=== PATIENT | female | born 1940 | race Caucasian/White ===

== ENCOUNTER 2017-07-12 21:36 | Emergency (ER) | payer MEDICAID, OTHER ==
[~2017-07-12] VITALS: Ht 152.4 cm; Wt 80.9 kg
[~2017-07-12 21:36] MED LIST: ASPI81TA42 PO; HYDR25TA PO; LOSA50TA37 PO; VITAD1000 PO
[2017-07-12] MEDS ORDERED: CALC-1202 PO (21:44)
[2017-07-12] MEDS ORDERED: PRAV40TA4 PO (21:44)
[2017-07-12] MEDS ORDERED: AMLO-511 PO (21:44)
[2017-07-12] MEDS ORDERED: LOSA50TA37 PO (21:44)
[2017-07-12] MEDS ORDERED: ACET-48 PO (21:44)
[2017-07-12] MEDS ORDERED: ALEN70TA48 PO (21:44)
[2017-07-12 22:49] LABS: BASOPHILS % (AUTO) 0.6 % (0.0-2.0); EOSINOPHILS % (AUTO) 3.4 % (1.0-6.0); LYMPHOCYTES # (AUTO) 1.5 K/uL (1.0-4.8); LYMPHOCYTES % (AUTO) 14.4 % (22.0-44.0); MEAN CORPUSCULAR HEMOGLOBIN 29.5 pg (26.0-34.0); MEAN CORPUSCULAR HGB CONC 33.3 G/dL (31.0-37.0); MEAN CORPUSCULAR VOLUME 88 fL (80-100); MONOCYTES # (AUTO) 0.7 K/uL (0.1-1.0); NEUTROPHILS # (AUTO) 7.8 K/uL (1.8-7.7); NEUTROPHILS % (AUTO) 74.6 % (40.0-70.0); PLATELET COUNT (AUTO) 279 K/uL (150-450); RED BLOOD CELL COUNT(AUTO) 4.42 MIL/uL (4.00-5.20); RED CELL DISTRIBUTION WIDTH 13.8 % (11.5-14.5)
[2017-07-12 22:54] LABS: CALCIUM, TOTAL 8.8 mg/dL (8.8-10.5); CREATININE 1.1 mg/dL (0.60-1.30); POTASSIUM 3.3 mmol/L (3.5-5.1)
[2017-07-12 22:59] LABS: ALBUMIN 3.5 g/dL (3.4-5.0); BILIRUBIN,TOTAL 0.3 mg/dL (0.1-1.0); TOTAL PROTEIN, SERUM 6.8 g/dL (6.4-8.2)
[2017-07-12] MEDS ORDERED: IOVERSOL 350 MG/ML 100 ML VIAL ONE (23:12)
[2017-07-13 00:04] LABS: APPEARANCE,URINE CLEAR (CLEAR); BILIRUBIN,URINE NEGATIVE (NEGATIVE); GLUCOSE, URINE (UA) NEGATIVE (NEGATIVE); KETONES,URINE NEGATIVE (NEGATIVE); LEUKOCYTE ESTERASE ,URINE NEGATIVE (NEGATIVE); NITRATE,URINE NEGATIVE (NEGATIVE); OCCULT BLOOD,URINE NEGATIVE (NEGATIVE); PROTEIN,URINE NEGATIVE (NEGATIVE); UROBILINOGEN,URINE 0.2 mg/dL (<=1.0)
[2017-07-13] MEDS ORDERED: KETOROLAC TROMETHAMINE 30 MG/ML VIAL IVP ONE (00:15)
[2017-07-13 00:23] LABS: BACTERIA,URINE None Seen /HPF (None Seen); RBC,URINE None Seen /HPF (0-2); WBC,URINE None Seen /HPF (0-5)
[2017-07-13 00:43] VITALS: BP 115/74
== END 2017-07-13 00:51 | disposition home or self-care (01) ==
LOC: EMS 21:36
DX: S29.8XXA Other specified injuries of thorax, initial encounter (principal); R07.89 Other chest pain; E78.00 Pure hypercholesterolemia, unspecified; I10 Essential (primary) hypertension; M81.0 Age-related osteoporosis without current pathological fracture; Z79.82 Long term (current) use of aspirin; Z79.899 Other long term (current) drug therapy; W01.0XXA Fall on same level from slipping, tripping and stumbling without subsequent striking against object, initial encounter; Y93.89 Activity, other specified; Y92.89 Other specified places as the place of occurrence of the external cause; Y99.8 Other external cause status
CPT/HCPCS: 36415; 74177; 80053; 81001; 85025; 96374; 99285; J1885; Q9967

== ENCOUNTER 2025-01-21 12:35 | Inpatient (IN) | payer MEDICARE, OTHER ==
[~2025-01-21] VITALS: Ht 149.9 cm; Wt 87.0 kg
[~2025-01-21 12:35] MED LIST changes: +ACET-49 PO; +ALEN70TA65 PO; +AMLO-257 PO; +ASPI81TA40 PO; -ASPI81TA42 PO; +CALC-1219 PO; -HYDR25TA PO; +HYDR25TA2 PO; +LOSA-382 PO; -LOSA50TA37 PO; +PRAV-59 PO; -VITAD1000 PO
[2025-01-21] MEDS ORDERED: 0.9% SODIUM CHLORIDE 10 ML SYRINGE IVP PRN (12:45)
[2025-01-21] MEDS: SODIUM CHLORIDE 0.9% 1,000 ML IV ONE ×3 (12:50→15:44)
[2025-01-21] MEDS: CefTRIAXone 1 GM/DEXTROSE 50 ML IV ONE (12:54)
[2025-01-21 13:09] LABS: RED BLOOD CELL COUNT(AUTO) 3.63 MIL/uL (4.00-5.20); RED CELL DISTRIBUTION WIDTH 18.9 % (11.5-14.5); WHITE BLOOD COUNT (AUTO) 8.7 K/uL (4.5-11.0)
[2025-01-21 13:17] LABS: CALCIUM, TOTAL 8.5 mg/dL (8.8-10.5); CREATININE 5.40 mg/dL (0.60-1.30); GLOMERULAR FILTR. RATE CALC 8 mL/min (>60); GLUCOSE,RANDOM 140 mg/dL (70-110); SODIUM SERUM 138 mmol/L (136-145); UREA NITROGEN, BLOOD 63 mg/dL (7-18)
[2025-01-21 13:21] LABS: ASPARTATE AMINOTRANSFERASE 37 U/L (15-37); CREATINE KINASE, TOTAL ONLY 309 U/L (26-192); TOTAL PROTEIN, SERUM 5.4 g/dL (6.4-8.2)
[2025-01-21 13:25] LABS: TROPONIN I-HIGH SENSITIVITY 74 ng/L (<51)
[2025-01-21 13:36] LABS: COVID AG,FIA SOURCE NASAL SWAB
[2025-01-21 13:39] LABS: PLATELET COUNT (AUTO) 96 K/uL (150-450)
[2025-01-21 13:41] LABS: BAND NEUTROPHILS % (MANUAL) 7 % (0-5); LYMPHOCYTES % (MANUAL) 16 % (22-44); MONOCYTES % (MANUAL) 2 % (2-9); RBC MORPHOLOGY COMMENT ABNORMAL RBC MORPH; SEGMENTED NEUTROPHILS % 75 % (40-70)
[2025-01-21] MEDS: NOREPINEPHRINE 8 MG/0.9 % NACL 250 ML IV PRN (13:49)
[2025-01-21 14:03] LABS: INFLUENZA TYPE A NEGATIVE FOR TYPE A (NEGATIVE); INFLUENZA TYPE B NEGATIVE FOR TYPE B (NEGATIVE)
[2025-01-21 14:07] LABS: LACTIC ACID 6.5 mmol/L (0.4-2.0)
[2025-01-21 14:10] LABS: SARS-COV2 (COVID) ANTIGEN,FIA Positive (Negative)
[2025-01-21] MEDS ORDERED: ONDANSETRON HCL 4 MG/2 ML VIAL IVP PRN (15:00)
[2025-01-21] MEDS: HEPARIN SODIUM,PORCINE 5,000 UNITS/ML VIAL SQ SCH (15:44)
[2025-01-21] MEDS: ACETAMINOPHEN 325 MG TABLET PO PRN (15:45)
[2025-01-21] MEDS: DEXAMETHASONE SOD PHOS 4 MG/ML VIAL IVP SCH (17:30)
[2025-01-21] MEDS: ALBUMIN HUMAN 25%-25GM/100ML 100 ML IV SCH (17:31)
[2025-01-21] MEDS: REMDESIVIR 200 MG in SODIUM CHLORIDE 0.9% 250 ML IV ONE (18:30)
[2025-01-21 19:51] LABS: APPEARANCE,URINE TURBID (CLEAR); GLUCOSE, URINE (UA) NEGATIVE (NEGATIVE); LEUKOCYTE ESTERASE ,URINE LARGE (NEGATIVE); NITRATE,URINE NEGATIVE (NEGATIVE); OCCULT BLOOD,URINE SMALL (NEGATIVE); SPECIFIC GRAVITIY, URINE 1.021 (1.003-1.030)
[2025-01-21 20:00] LABS: SQUAMOUS EPITHELIAL CELL,UR Few /LPF (None Seen)
[2025-01-21 20:02] LABS: SULFOSALICYLIC ACID,URINE 3+ (Negative)
[2025-01-21] MEDS ORDERED: VASOPRESSIN 40 UNITS in DEXTROSE 5%-WATER 98 ML IV PRN (20:15)
[2025-01-21] MEDS: PHENYLEPHRINE 200 MG/D5%-WATER 250 ML IV PRN (20:40)
[2025-01-21] MEDS: DOCUSATE SODIUM 100 MG CAPSULE PO SCH (21:00)
[2025-01-21] MEDS: CHLORHEXIDINE GLUCONATE 2% TOWELETTE [2'S/6'S] TP SCH (22:00)
[2025-01-21 23:39] LABS: ABG BASE EXCESS -7.0 mmol/L (-2.0-3.0); ABG CARBOXYHEMOGLOBIN 0.7 % (0.5-1.5); ABG HCO3 19.3 mmol/L (21.0-28.0); ABG METHEMOGLOBIN 0.7 % (0.0-1.5); ABG OXYGEN CONTENT 14.7 mL/dL (15.0-23.0); ABG OXYGEN SATURATION 88.8 % (94.0-98.0); ABG OXYHEMOGLOBIN 87.6 % (94.0-98.0); ABG PCO2 34 mmHg (32.0-45.0); ABG PH 7.351 (7.350-7.450); ABG TOTAL HEMOGLOBIN 11.9 G/dL (12.0-16.0); FRACTIONATED INSPIRED OXYGEN 40.0 % (21-100.0); PO2, ARTERIAL BG 58.7 mmHg (83.0-108.0); SOURCE, BLOOD GAS ARTERIAL; TEMPERATURE, FAHRENHEIT, BG 98.6 FAHREN (96.0-98.6)
[2025-01-21 23:40] LABS: O2 DEVICE,BLOOD GAS VENTURI MASK (ROOM AIR); SITE, BLOOD GAS RT BRACHIAL
[2025-01-21 23:41] LABS: ABG A-A DIFF O2 186.9 mmHg (10-20.0)
[2025-01-21 23:45] VITALS: PULSE 77; RESP 30; O2SAT 94
[2025-01-22] VITALS (8 sets, daily range): BP systolic 124–136; BP diastolic 48–49; PULSE 57–87; RESP 16–32; TEMP 96.7; O2SAT 92–99
[2025-01-22] MEDS: PIPERACILLIN SODIUM/TAZOBACTAM 2.25 GM in DEXTROSE 5%-WATER 50 ML IV SCH (00:41)
[2025-01-22] MEDS: NOREPINEPHRINE 8 MG/0.9 % NACL 250 ML IV PRN (05:17)
[2025-01-22 05:46] LABS: ASPARTATE AMINOTRANSFERASE 56.0 U/L (15-37); CALCIUM, TOTAL 7.4 mg/dL (8.8-10.5); CREATININE 5.07 mg/dL (0.60-1.30); GLOMERULAR FILTR. RATE CALC 8.0 mL/min (>60); GLUCOSE,RANDOM 117.0 mg/dL (70-110); SODIUM SERUM 141.0 mmol/L (136-145); TOTAL PROTEIN, SERUM 5.7 g/dL (6.4-8.2); UREA NITROGEN, BLOOD 68.0 mg/dL (7-18)
[2025-01-22 06:01] LABS: PHOSPHORUS 5.2 mg/dL (2.5-4.9)
[2025-01-22 07:27] LABS: TROPONIN I-HIGH SENSITIVITY 2196 ng/L (<51)
[2025-01-22] MEDS: PANTOPRAZOLE SODIUM 40 MG/VIAL IVP SCH (08:32)
[2025-01-22] MEDS ORDERED: ASPIRIN 81 MG CHEWABLE TABLET ONE (08:42)
[2025-01-22] MEDS: ASPIRIN 81 MG CHEWABLE TABLET PO SCH (08:49)
[2025-01-22] MEDS ORDERED: HEPARIN SODIUM,PORCINE 5,000 UNITS/ML VIAL IVP PRN (10:30)
[2025-01-22 11:11] LABS: PLATELET COUNT (AUTO) 69 K/uL (150-450); RED BLOOD CELL COUNT(AUTO) 3.38 MIL/uL (4.00-5.20); RED CELL DISTRIBUTION WIDTH 19.7 % (11.5-14.5); WHITE BLOOD COUNT (AUTO) 16.1 K/uL (4.5-11.0)
[2025-01-22] MEDS: HEPARIN SODIUM,PORCINE 5,000 UNITS/ML VIAL IVP ONE (11:26)
[2025-01-22] MEDS: ATORVASTATIN CALCIUM 40 MG TABLET PO SCH (11:30)
[2025-01-22] MEDS: HEPARIN SODIUM 25000 UNITS/D5W 250 ML IV PRN (11:30)
[2025-01-22 11:51] LABS: BAND NEUTROPHILS % (MANUAL) 7 % (0-5); LYMPHOCYTES % (MANUAL) 7 % (22-44); MONOCYTES % (MANUAL) 17 % (2-9); RBC MORPHOLOGY COMMENT ABNORMAL R; SEGMENTED NEUTROPHILS % 69 % (40-70)
[2025-01-22 11:56] LABS: PATHOLOGY REVIEW, DIFF N
[2025-01-22] MEDS ORDERED: CefTRIAXone 1 GM/DEXTROSE 50 ML IV SCH (13:00)
[2025-01-22] MEDS ORDERED: ROCURONIUM BROMIDE 10 MG/ML 5 ML VIAL ONE (14:57)
[2025-01-22] MEDS ORDERED: ETOMIDATE 2 MG/ML 10 ML VIAL ONE (14:57)
[2025-01-22] MEDS ORDERED: SODIUM CHLORIDE 0.9% 500 ML IV ONE (15:03)
[2025-01-22 16:58] LABS: ABG BASE EXCESS -6.9 mmol/L (-2.0-3.0); ABG CARBOXYHEMOGLOBIN 0.3 % (0.5-1.5); ABG HCO3 19.3 mmol/L (21.0-28.0); ABG METHEMOGLOBIN 0.3 % (0.0-1.5); ABG OXYGEN CONTENT 16.7 mL/dL (15.0-23.0); ABG OXYGEN SATURATION 98.7 % (94.0-98.0); ABG OXYHEMOGLOBIN 98.1 % (94.0-98.0); ABG PCO2 40 mmHg (32.0-45.0); ABG PH 7.302 (7.350-7.450); ABG TOTAL HEMOGLOBIN 11.9 G/dL (12.0-16.0); FRACTIONATED INSPIRED OXYGEN 100.0 % (21-100.0); PO2, ARTERIAL BG 155.1 mmHg (83.0-108.0); SOURCE, BLOOD GAS ARTERIAL; TEMPERATURE, FAHRENHEIT, BG 99.3 FAHREN (96.0-98.6)
[2025-01-22 17:00] LABS: TROPONIN I-HIGH SENSITIVITY 5526 ng/L (<51)
[2025-01-22 17:01] LABS: ABG A-A DIFF O2 516.6 mmHg (10-20.0); O2 DEVICE,BLOOD GAS VENTILATOR (ROOM AIR); SITE, BLOOD GAS ARTERIAL LINE
[2025-01-22 17:02] LABS: INSPIRATORY TIME, BG 1 SEC; PATIENT RATE, BG 24.0 min.; PEEP,BG 10 cm H2O; SET RATE, BG 16.0 min.; SPONTANEOUS VT, BG 387 ml; VT, ABG 375 ml
[2025-01-22] MEDS: FentaNYL CIT 1000MCG/0.9% NACL 100 ML IV PRN (17:12)
[2025-01-22] MEDS: REMDESIVIR 100 MG in SODIUM CHLORIDE 0.9% 250 ML IV SCH (17:14)
[2025-01-22] MEDS: PROPOFOL 1000 MG/ISO-OSM 100 ML IV PRN (17:14)
[2025-01-22] MEDS: TOCILIZUMAB 700 MG in SODIUM CHLORIDE 0.9% 65 ML IV ONE (18:31)
[2025-01-22] MEDS: HEPARIN SODIUM,PORCINE 5,000 UNITS/ML VIAL IVP PRN (18:31)
[2025-01-23] VITALS (14 sets, daily range): BP systolic 114–155; BP diastolic 49–59; PULSE 6–125; RESP 14–22; TEMP 94.9–98.9; O2SAT 94–98
[2025-01-23 00:14] LABS: PLATELET COUNT (AUTO) 48 K/uL (150-450); RED BLOOD CELL COUNT(AUTO) 2.93 MIL/uL (4.00-5.20); RED CELL DISTRIBUTION WIDTH 20.2 % (11.5-14.5); WHITE BLOOD COUNT (AUTO) 15.1 K/uL (4.5-11.0)
[2025-01-23 00:23] LABS: CALCIUM, TOTAL 7.2 mg/dL (8.8-10.5); CREATININE 4.6 mg/dL (0.60-1.30); GLOMERULAR FILTR. RATE CALC 9.0 mL/min (>60); GLUCOSE,RANDOM 145.0 mg/dL (70-110); SODIUM SERUM 143.0 mmol/L (136-145); UREA NITROGEN, BLOOD 69.0 mg/dL (7-18)
[2025-01-23 00:28] LABS: ASPARTATE AMINOTRANSFERASE 48.0 U/L (15-37); PHOSPHORUS 4.7 mg/dL (2.5-4.9); TOTAL PROTEIN, SERUM 5.6 g/dL (6.4-8.2)
[2025-01-23 00:50] LABS: BAND NEUTROPHILS % (MANUAL) 8 % (0-5); LYMPHOCYTES % (MANUAL) 3 % (22-44); MONOCYTES % (MANUAL) 3 % (2-9); SEGMENTED NEUTROPHILS % 86 % (40-70)
[2025-01-23 00:51] LABS: RBC MORPHOLOGY COMMENT ABNORMAL RBC MORPH
[2025-01-23] MEDS: POTASSIUM CHLORIDE 15 MEQ in NXSTAGE RFP-402 K0/CA3 5,000 ML IRRIG PRN (05:15)
[2025-01-23 05:26] LABS: GLUCOMETER DEV NAME(LOC) ICU.S7; GLUCOSE,POINT OF CARE 124 MG/DL (70-110)
[2025-01-23 05:43] LABS: PLATELET COUNT (AUTO) 46 K/uL (150-450); RED BLOOD CELL COUNT(AUTO) 2.86 MIL/uL (4.00-5.20); RED CELL DISTRIBUTION WIDTH 19.8 % (11.5-14.5); WHITE BLOOD COUNT (AUTO) 15.4 K/uL (4.5-11.0)
[2025-01-23 06:17] LABS: ASPARTATE AMINOTRANSFERASE 42.0 U/L (15-37); CALCIUM, TOTAL 7.4 mg/dL (8.8-10.5); CREATININE 4.14 mg/dL (0.60-1.30); GLOMERULAR FILTR. RATE CALC 10.0 mL/min (>60); GLUCOSE,RANDOM 128.0 mg/dL (70-110); PHOSPHORUS 4.5 mg/dL (2.5-4.9); SODIUM SERUM 141.0 mmol/L (136-145); TOTAL PROTEIN, SERUM 5.9 g/dL (6.4-8.2); UREA NITROGEN, BLOOD 64.0 mg/dL (7-18)
[2025-01-23 06:43] LABS: TROPONIN I-HIGH SENSITIVITY 2943 ng/L (<51)
[2025-01-23 06:44] LABS: BAND NEUTROPHILS % (MANUAL) 11 % (0-5); LYMPHOCYTES % (MANUAL) 4 % (22-44); MONOCYTES % (MANUAL) 3 % (2-9); RBC MORPHOLOGY COMMENT ABNORMAL R; SEGMENTED NEUTROPHILS % 82 % (40-70)
[2025-01-23 07:25] LABS: APPEARANCE,URINE HAZY (CLEAR); GLUCOSE, URINE (UA) NEGATIVE (NEGATIVE); LEUKOCYTE ESTERASE ,URINE MODERATE (NEGATIVE); NITRATE,URINE NEGATIVE (NEGATIVE); OCCULT BLOOD,URINE MODERATE (NEGATIVE); SPECIFIC GRAVITIY, URINE 1.022 (1.003-1.030)
[2025-01-23 08:35] LABS: SULFOSALICYLIC ACID,URINE 3+ (Negative)
[2025-01-23 08:36] LABS: SQUAMOUS EPITHELIAL CELL,UR Few /LPF (None Seen)
[2025-01-23] MEDS: PIPERACILLIN/TAZO 3.375 GM/D5W 50 ML IV SCH (08:42)
[2025-01-23 09:48] LABS: ABG BASE EXCESS -4.9 mmol/L (-2.0-3.0); ABG CARBOXYHEMOGLOBIN 0.3 % (0.5-1.5); ABG HCO3 20.7 mmol/L (21.0-28.0); ABG METHEMOGLOBIN 0.3 % (0.0-1.5); ABG OXYGEN CONTENT 13.9 mL/dL (15.0-23.0); ABG OXYGEN SATURATION 97.9 % (94.0-98.0); ABG OXYHEMOGLOBIN 97.3 % (94.0-98.0); ABG PCO2 41 mmHg (32.0-45.0); ABG PH 7.333 (7.350-7.450); ABG TOTAL HEMOGLOBIN 10.0 G/dL (12.0-16.0); FRACTIONATED INSPIRED OXYGEN 60.0 % (21-100.0); PO2, ARTERIAL BG 120.5 mmHg (83.0-108.0); SOURCE, BLOOD GAS ARTERIAL; TEMPERATURE, FAHRENHEIT, BG 98.6 FAHREN (96.0-98.6)
[2025-01-23 09:49] LABS: ABG A-A DIFF O2 262.8 mmHg (10-20.0); SITE, BLOOD GAS ARTERIAL LINE
[2025-01-23 09:50] LABS: O2 DEVICE,BLOOD GAS VENTILATOR (ROOM AIR); PEEP,BG 10 cm H2O; SET RATE, BG 16.0 min.; VT, ABG 375 ml
[2025-01-23 11:11] LABS: CREATININE,URINE RANDOM 152.0 mg/dL (30.0-125.0); UREA NITROGEN,URINE RANDOM 250 mg/dL (350-1000)
[2025-01-23] MEDS: AMIODARONE HCL 150 MG in DEXTROSE 5%-WATER 97 ML IV ONE (12:18)
[2025-01-23] MEDS: AMIODARONE HCL 360 MG in DEXTROSE 5%-WATER 242.8 ML IV ONE (12:19)
[2025-01-23] MEDS: *CLINICAL-LEVOFLOXACIN IVPB DOSING CLINICAL ONE (12:53)
[2025-01-23 14:34] LABS: CALCIUM, TOTAL 7.5 mg/dL (8.8-10.5); CREATININE 3.59 mg/dL (0.60-1.30); GLOMERULAR FILTR. RATE CALC 12.0 mL/min (>60); GLUCOSE,RANDOM 139.0 mg/dL (70-110); SODIUM SERUM 139.0 mmol/L (136-145); UREA NITROGEN, BLOOD 57.0 mg/dL (7-18)
[2025-01-23 14:39] LABS: PHOSPHORUS 4.1 mg/dL (2.5-4.9)
[2025-01-23] MEDS ORDERED: SODIUM CHLORIDE 0.9% 250 ML IV ONE (15:37)
[2025-01-23] MEDS: LEVOFLOXACIN 750 MG/D5% WATER 150 ML IV SCH (16:59)
[2025-01-23] MEDS: AMIODARONE HCL 540 MG in DEXTROSE 5%-WATER 250 ML IV ONE (17:50)
[2025-01-23 21:15] LABS: CALCIUM, TOTAL 7.7 mg/dL (8.8-10.5); CREATININE 3.27 mg/dL (0.60-1.30); GLOMERULAR FILTR. RATE CALC 13.0 mL/min (>60); GLUCOSE,RANDOM 145.0 mg/dL (70-110); SODIUM SERUM 138.0 mmol/L (136-145); UREA NITROGEN, BLOOD 50.0 mg/dL (7-18)
[2025-01-23 21:18] LABS: PHOSPHORUS 3.7 mg/dL (2.5-4.9)
[2025-01-24] VITALS (19 sets, daily range): BP systolic 115–162; BP diastolic 50–63; PULSE 44–95; RESP 18–25; TEMP 96.1–98.9; O2SAT 9–99
[2025-01-24 02:17] LABS: CALCIUM, TOTAL 7.7 mg/dL (8.8-10.5); CREATININE 3.11 mg/dL (0.60-1.30); GLOMERULAR FILTR. RATE CALC 14.0 mL/min (>60); GLUCOSE,RANDOM 136.0 mg/dL (70-110); SODIUM SERUM 136.0 mmol/L (136-145); UREA NITROGEN, BLOOD 50.0 mg/dL (7-18)
[2025-01-24 02:21] LABS: PHOSPHORUS 3.5 mg/dL (2.5-4.9)
[2025-01-24 08:04] LABS: PLATELET COUNT (AUTO) 42 K/uL (150-450); RED BLOOD CELL COUNT(AUTO) 2.45 MIL/uL (4.00-5.20); RED CELL DISTRIBUTION WIDTH 19.5 % (11.5-14.5); WHITE BLOOD COUNT (AUTO) 13.0 K/uL (4.5-11.0)
[2025-01-24 08:14] LABS: CALCIUM, TOTAL 7.6 mg/dL (8.8-10.5); CREATININE 2.83 mg/dL (0.60-1.30); GLOMERULAR FILTR. RATE CALC 16.0 mL/min (>60); GLUCOSE,RANDOM 126.0 mg/dL (70-110); SODIUM SERUM 135.0 mmol/L (136-145); UREA NITROGEN, BLOOD 46.0 mg/dL (7-18)
[2025-01-24 08:18] LABS: PHOSPHORUS 3.5 mg/dL (2.5-4.9)
[2025-01-24] MEDS: *CLINICAL-MEROPENEM DOSING CLINICAL ONE (08:20)
[2025-01-24 10:08] LABS: ABG BASE EXCESS -2.6 mmol/L (-2.0-3.0); ABG CARBOXYHEMOGLOBIN 0.3 % (0.5-1.5); ABG HCO3 22.5 mmol/L (21.0-28.0); ABG METHEMOGLOBIN 0.3 % (0.0-1.5); ABG OXYGEN CONTENT 11.0 mL/dL (15.0-23.0); ABG OXYGEN SATURATION 97.7 % (94.0-98.0); ABG OXYHEMOGLOBIN 97.1 % (94.0-98.0); ABG PCO2 41 mmHg (32.0-45.0); ABG PH 7.365 (7.350-7.450); ABG TOTAL HEMOGLOBIN 7.9 G/dL (12.0-16.0); FRACTIONATED INSPIRED OXYGEN 50.0 % (21-100.0); PO2, ARTERIAL BG 112.1 mmHg (83.0-108.0); SOURCE, BLOOD GAS ARTERIAL; TEMPERATURE, FAHRENHEIT, BG 98.6 FAHREN (96.0-98.6)
[2025-01-24 10:11] LABS: SITE, BLOOD GAS ARTERIAL LINE
[2025-01-24 10:12] LABS: ABG A-A DIFF O2 198.5 mmHg (10-20.0); O2 DEVICE,BLOOD GAS VENTILATOR (ROOM AIR); PEEP,BG 5 cm H2O; SET RATE, BG 20.0 min.; VT, ABG 375 ml
[2025-01-24] MEDS: MEROPENEM 1 GM in SODIUM CHLORIDE 0.9% 50 ML IV SCH (11:34)
[2025-01-24] MEDS: AMIODARONE HCL 200 MG TABLET PO SCH (11:34)
[2025-01-24] MEDS: AMIODARONE HCL 750 MG in DEXTROSE 5%-WATER 485 ML IV SCH (11:36)
[2025-01-24 14:48] LABS: CALCIUM, TOTAL 7.9 mg/dL (8.8-10.5); CREATININE 2.7 mg/dL (0.60-1.30); GLOMERULAR FILTR. RATE CALC 17.0 mL/min (>60); GLUCOSE,RANDOM 115.0 mg/dL (70-110); SODIUM SERUM 135.0 mmol/L (136-145); UREA NITROGEN, BLOOD 42.0 mg/dL (7-18)
[2025-01-24 14:52] LABS: PHOSPHORUS 3.1 mg/dL (2.5-4.9)
[2025-01-24 20:54] LABS: CALCIUM, TOTAL 8.0 mg/dL (8.8-10.5); CREATININE 2.41 mg/dL (0.60-1.30); GLOMERULAR FILTR. RATE CALC 19.0 mL/min (>60); GLUCOSE,RANDOM 109.0 mg/dL (70-110); SODIUM SERUM 137.0 mmol/L (136-145); UREA NITROGEN, BLOOD 39.0 mg/dL (7-18)
[2025-01-24 21:03] LABS: PHOSPHORUS 3.3 mg/dL (2.5-4.9)
[2025-01-24] MEDS ORDERED: SODIUM CHLORIDE 0.9% 250 ML IV ONE (21:33)
[2025-01-25] VITALS (17 sets, daily range): BP systolic 107–163; BP diastolic 52–69; PULSE 41–119; RESP 18–26; TEMP 96–98.5; O2SAT 93–100
[2025-01-25 02:18] LABS: CALCIUM, TOTAL 8.3 mg/dL (8.8-10.5); CREATININE 2.13 mg/dL (0.60-1.30); GLOMERULAR FILTR. RATE CALC 22.0 mL/min (>60); GLUCOSE,RANDOM 133.0 mg/dL (70-110); SODIUM SERUM 135.0 mmol/L (136-145); UREA NITROGEN, BLOOD 35.0 mg/dL (7-18)
[2025-01-25 02:23] LABS: PHOSPHORUS 3.2 mg/dL (2.5-4.9)
[2025-01-25] MEDS ORDERED: SODIUM CHLORIDE 0.9% 250 ML IV ONE (04:48)
[2025-01-25 05:12] LABS: PLATELET COUNT (AUTO) 43 K/uL (150-450); RED BLOOD CELL COUNT(AUTO) 2.72 MIL/uL (4.00-5.20); RED CELL DISTRIBUTION WIDTH 18.4 % (11.5-14.5); WHITE BLOOD COUNT (AUTO) 9.2 K/uL (4.5-11.0)
[2025-01-25 05:27] LABS: PHOSPHORUS 3.0 mg/dL (2.5-4.9)
[2025-01-25 05:30] LABS: ASPARTATE AMINOTRANSFERASE 23.0 U/L (15-37); CALCIUM, TOTAL 8.5 mg/dL (8.8-10.5); CREATININE 1.93 mg/dL (0.60-1.30); GLOMERULAR FILTR. RATE CALC 25.0 mL/min (>60); GLUCOSE,RANDOM 119.0 mg/dL (70-110); SODIUM SERUM 137.0 mmol/L (136-145); TOTAL PROTEIN, SERUM 5.7 g/dL (6.4-8.2); UREA NITROGEN, BLOOD 36.0 mg/dL (7-18)
[2025-01-25 08:44] LABS: PLATELET COUNT (AUTO) 46 K/uL (150-450); RED BLOOD CELL COUNT(AUTO) 2.92 MIL/uL (4.00-5.20); RED CELL DISTRIBUTION WIDTH 18.4 % (11.5-14.5); WHITE BLOOD COUNT (AUTO) 10.5 K/uL (4.5-11.0)
[2025-01-25] MEDS: DOCUSATE SODIUM 100 MG/10 ML LIQUID UDCUP NG SCH (09:36)
[2025-01-25] MEDS: AMIODARONE HCL 360 MG in DEXTROSE 5%-WATER 242.8 ML IV ONE (10:45)
[2025-01-25 13:01] LABS: CALCIUM, TOTAL 9.1 mg/dL (8.8-10.5); CREATININE 1.88 mg/dL (0.60-1.30); GLOMERULAR FILTR. RATE CALC 25.0 mL/min (>60); GLUCOSE,RANDOM 149.0 mg/dL (70-110); SODIUM SERUM 135.0 mmol/L (136-145); UREA NITROGEN, BLOOD 36.0 mg/dL (7-18)
[2025-01-25 13:04] LABS: PHOSPHORUS 3.5 mg/dL (2.5-4.9)
[2025-01-25] MEDS: POTASSIUM CHLORIDE 20 MEQ in NXSTAGE RFP-402 K0/CA3 5,000 ML IRRIG PRN (13:14)
[2025-01-25] MEDS: AMIODARONE HCL 540 MG in DEXTROSE 5%-WATER 250 ML IV ONE (16:32)
[2025-01-25 20:20] LABS: CALCIUM, TOTAL 9.2 mg/dL (8.8-10.5); CREATININE 1.79 mg/dL (0.60-1.30); GLOMERULAR FILTR. RATE CALC 27.0 mL/min (>60); GLUCOSE,RANDOM 137.0 mg/dL (70-110); SODIUM SERUM 135.0 mmol/L (136-145); UREA NITROGEN, BLOOD 36.0 mg/dL (7-18)
[2025-01-25 20:23] LABS: PHOSPHORUS 2.9 mg/dL (2.5-4.9)
[2025-01-26] VITALS (16 sets, daily range): BP systolic 94–174; BP diastolic 45–74; PULSE 46–81; RESP 8–27; TEMP 97.6–99.4; O2SAT 94–100
[2025-01-26 03:23] LABS: CALCIUM, TOTAL 9.4 mg/dL (8.8-10.5); CREATININE 1.49 mg/dL (0.60-1.30); GLOMERULAR FILTR. RATE CALC 33.0 mL/min (>60); GLUCOSE,RANDOM 117.0 mg/dL (70-110); SODIUM SERUM 137.0 mmol/L (136-145); UREA NITROGEN, BLOOD 36.0 mg/dL (7-18)
[2025-01-26 03:28] LABS: PHOSPHORUS 2.6 mg/dL (2.5-4.9)
[2025-01-26 08:20] LABS: CALCIUM, TOTAL 9.2 mg/dL (8.8-10.5); CREATININE 1.48 mg/dL (0.60-1.30); GLOMERULAR FILTR. RATE CALC 34.0 mL/min (>60); GLUCOSE,RANDOM 100.0 mg/dL (70-110); SODIUM SERUM 140.0 mmol/L (136-145); UREA NITROGEN, BLOOD 35.0 mg/dL (7-18)
[2025-01-26 08:23] LABS: PHOSPHORUS 2.2 mg/dL (2.5-4.9)
[2025-01-26] MEDS: AMIODARONE HCL 750 MG in DEXTROSE 5%-WATER 485 ML IV SCH (10:30)
[2025-01-26] MEDS: ETHYL ALCOHOL 62% ANTISEPTIC NASAL SANITIZER 0.6 ML AMPUL NASAL SCH (11:56)
[2025-01-26 14:14] LABS: ABG BASE EXCESS 2.0 mmol/L (-2.0-3.0); ABG CARBOXYHEMOGLOBIN 0.2 % (0.5-1.5); ABG HCO3 25.7 mmol/L (21.0-28.0); ABG METHEMOGLOBIN 0.3 % (0.0-1.5); ABG OXYGEN CONTENT 13.7 mL/dL (15.0-23.0); ABG OXYGEN SATURATION 95.2 % (94.0-98.0); ABG OXYHEMOGLOBIN 94.7 % (94.0-98.0); ABG PCO2 51 mmHg (32.0-45.0); ABG PH 7.351 (7.350-7.450); ABG TOTAL HEMOGLOBIN 10.2 G/dL (12.0-16.0); FRACTIONATED INSPIRED OXYGEN 40.0 % (21-100.0); PO2, ARTERIAL BG 82.8 mmHg (83.0-108.0); SOURCE, BLOOD GAS ARTERIAL; TEMPERATURE, FAHRENHEIT, BG 98.3 FAHREN (96.0-98.6)
[2025-01-26 14:15] LABS: ABG A-A DIFF O2 144.0 mmHg (10-20.0); O2 DEVICE,BLOOD GAS VENTILATOR (ROOM AIR); PATIENT RATE, BG 7.0 min.; PEEP,BG 5 cm H2O; SITE, BLOOD GAS ARTERIAL LINE; VENT MODE, BG Press. Support Vent. (ROOM AIR)
[2025-01-26 14:16] LABS: PRESSURE SUPPORT, BG 5 cm H2O; SPONTANEOUS VT, BG 849 ml
[2025-01-26 15:05] LABS: CALCIUM, TOTAL 9.4 mg/dL (8.8-10.5); CREATININE 1.47 mg/dL (0.60-1.30); GLOMERULAR FILTR. RATE CALC 34.0 mL/min (>60); GLUCOSE,RANDOM 142.0 mg/dL (70-110); SODIUM SERUM 138.0 mmol/L (136-145); UREA NITROGEN, BLOOD 36.0 mg/dL (7-18)
[2025-01-26 15:09] LABS: PHOSPHORUS 2.8 mg/dL (2.5-4.9)
[2025-01-26] MEDS: HEPARIN SODIUM,PORCINE 1,000 UNITS/ML VIAL IVCATH PRN (16:12)
[2025-01-26] MEDS: METOPROLOL TARTRATE 25 MG TABLET PO SCH (18:03)
[2025-01-26] MEDS ORDERED: SODIUM CHLORIDE 0.9% 500 ML IV ONE ×2 (19:17→19:56)
[2025-01-26] MEDS ORDERED: SODIUM CHLORIDE 0.9% 250 ML IV ONE (19:17)
[2025-01-26 19:33] LABS: PLATELET COUNT (AUTO) 59 K/uL (150-450); RED BLOOD CELL COUNT(AUTO) 2.71 MIL/uL (4.00-5.20); RED CELL DISTRIBUTION WIDTH 19.0 % (11.5-14.5); WHITE BLOOD COUNT (AUTO) 9.1 K/uL (4.5-11.0)
[2025-01-26] MEDS: LACTULOSE 20 GM/30 ML SOLUTION UDCUP PO SCH (20:15)
[2025-01-26 20:26] LABS: BAND NEUTROPHILS % (MANUAL) 6 % (0-5); LYMPHOCYTES % (MANUAL) 9 % (22-44); MONOCYTES % (MANUAL) 7 % (2-9); SEGMENTED NEUTROPHILS % 78 % (40-70)
[2025-01-27] VITALS (18 sets, daily range): BP systolic 135–180; BP diastolic 55–77; PULSE 60–98; RESP 12–27; TEMP 98.9–99.5; O2SAT 94–99
[2025-01-27 05:21] LABS: CALCIUM, TOTAL 10.0 mg/dL (8.8-10.5); CREATININE 2.36 mg/dL (0.60-1.30); GLOMERULAR FILTR. RATE CALC 20.0 mL/min (>60); GLUCOSE,RANDOM 107.0 mg/dL (70-110); SODIUM SERUM 139.0 mmol/L (136-145); UREA NITROGEN, BLOOD 57.0 mg/dL (7-18)
[2025-01-27 05:23] LABS: PLATELET COUNT (AUTO) 86 K/uL (150-450); RED BLOOD CELL COUNT(AUTO) 2.88 MIL/uL (4.00-5.20); RED CELL DISTRIBUTION WIDTH 17.9 % (11.5-14.5); WHITE BLOOD COUNT (AUTO) 14.0 K/uL (4.5-11.0)
[2025-01-27 05:25] LABS: PHOSPHORUS 3.2 mg/dL (2.5-4.9)
[2025-01-27 05:26] LABS: BAND NEUTROPHILS % (MANUAL) 0 % (0-5)
[2025-01-27 05:49] LABS: LYMPHOCYTES % (MANUAL) 15 % (22-44); MONOCYTES % (MANUAL) 6 % (2-9); SEGMENTED NEUTROPHILS % 79 % (40-70)
[2025-01-27] MEDS ORDERED: SODIUM CHLORIDE 0.9% 2,000 ML ONE (10:40)
[2025-01-27] MEDS ORDERED: HEPARIN SODIUM,PORCINE 1,000 UNITS/ML VIAL ONE (12:00)
[2025-01-27 15:25] LABS: ABG BASE EXCESS -1.2 mmol/L (-2.0-3.0); ABG CARBOXYHEMOGLOBIN 0.2 % (0.5-1.5); ABG HCO3 23.6 mmol/L (21.0-28.0); ABG METHEMOGLOBIN 0.3 % (0.0-1.5); ABG OXYGEN CONTENT 12.1 mL/dL (15.0-23.0); ABG OXYGEN SATURATION 95.4 % (94.0-98.0); ABG OXYHEMOGLOBIN 94.9 % (94.0-98.0); ABG PCO2 39 mmHg (32.0-45.0); ABG PH 7.405 (7.350-7.450); ABG TOTAL HEMOGLOBIN 9.0 G/dL (12.0-16.0); FRACTIONATED INSPIRED OXYGEN 40.0 % (21-100.0); PO2, ARTERIAL BG 86.4 mmHg (83.0-108.0); SOURCE, BLOOD GAS ARTERIAL; TEMPERATURE, FAHRENHEIT, BG 99.2 FAHREN (96.0-98.6)
[2025-01-27 15:26] LABS: SITE, BLOOD GAS ARTERIAL LINE
[2025-01-27 15:27] LABS: ABG A-A DIFF O2 154.3 mmHg (10-20.0); O2 DEVICE,BLOOD GAS VENTILATOR (ROOM AIR); PATIENT RATE, BG 20.0 min.; PEEP,BG 5 cm H2O; PRESSURE SUPPORT, BG 8 cm H2O; VENT MODE, BG Press. Support Vent. (ROOM AIR)
[2025-01-27 15:28] LABS: SPONTANEOUS VT, BG 545 ml
[2025-01-27] MEDS: AMINO ACIDS/PROTEIN HYDROLYS 30 ML LIQUID TUBE NG SCH (16:00)
[2025-01-27] MEDS: MEROPENEM 500 MG in SODIUM CHLORIDE 0.9% 50 ML IV SCH (18:09)
[2025-01-27 18:30] LABS: APPEARANCE,URINE HAZY (CLEAR); GLUCOSE, URINE (UA) NEGATIVE (NEGATIVE); LEUKOCYTE ESTERASE ,URINE SMALL (NEGATIVE); NITRATE,URINE NEGATIVE (NEGATIVE); OCCULT BLOOD,URINE NEGATIVE (NEGATIVE); SPECIFIC GRAVITIY, URINE 1.019 (1.003-1.030)
[2025-01-27 18:51] LABS: SQUAMOUS EPITHELIAL CELL,UR Moderate /LPF (None Seen)
[2025-01-27] MEDS: HEPARIN SODIUM,PORCINE 1,000 UNITS/ML VIAL IVCATH ONE ×2 (20:30)
[2025-01-28] VITALS (16 sets, daily range): BP systolic 102–154; BP diastolic 52–76; PULSE 69–98; RESP 16–22; TEMP 98.2–100.8; O2SAT 95–99
[2025-01-28 05:44] LABS: PLATELET COUNT (AUTO) 120 K/uL (150-450); RED BLOOD CELL COUNT(AUTO) 2.81 MIL/uL (4.00-5.20); RED CELL DISTRIBUTION WIDTH 17.9 % (11.5-14.5); WHITE BLOOD COUNT (AUTO) 14.3 K/uL (4.5-11.0)
[2025-01-28 05:58] LABS: ASPARTATE AMINOTRANSFERASE 23.0 U/L (15-37); CALCIUM, TOTAL 9.2 mg/dL (8.8-10.5); CREATININE 2.03 mg/dL (0.60-1.30); GLOMERULAR FILTR. RATE CALC 23.0 mL/min (>60); GLUCOSE,RANDOM 87.0 mg/dL (70-110); SODIUM SERUM 139.0 mmol/L (136-145); TOTAL PROTEIN, SERUM 6.3 g/dL (6.4-8.2); UREA NITROGEN, BLOOD 43.0 mg/dL (7-18)
[2025-01-28 06:07] LABS: PHOSPHORUS 2.9 mg/dL (2.5-4.9)
[2025-01-28] MEDS ORDERED: HEPARIN SODIUM,PORCINE 1,000 UNITS/ML VIAL IVP ONE (09:19)
[2025-01-28] MEDS: ACETAMINOPHEN 1000 MG/ISO-OSM 100 ML IV PRN (11:23)
[2025-01-28] MEDS ORDERED: SODIUM CHLORIDE 0.9% 250 ML IV ONE (13:02)
[2025-01-28] MEDS: HEPARIN SODIUM,PORCINE 1,000 UNITS/ML VIAL IVCATH ONE ×2 (14:00)
[2025-01-28] MEDS ORDERED: SODIUM CHLORIDE 0.9% 500 ML IV ONE (17:17)
[2025-01-28] MEDS: MORPHINE SULFATE 4 MG/ML VIAL IVP PRN (21:54)
[2025-01-29] VITALS (7 sets, daily range): BP systolic 103–133; BP diastolic 65–88; PULSE 68–87; RESP 18–20; TEMP 98.2–99; O2SAT 92–99
[2025-01-29 06:19] LABS: PLATELET COUNT (AUTO) 165 K/uL (150-450); RED BLOOD CELL COUNT(AUTO) 2.90 MIL/uL (4.00-5.20); RED CELL DISTRIBUTION WIDTH 17.2 % (11.5-14.5); WHITE BLOOD COUNT (AUTO) 14.0 K/uL (4.5-11.0)
[2025-01-29 06:41] LABS: ASPARTATE AMINOTRANSFERASE 17.0 U/L (15-37); CALCIUM, TOTAL 9.3 mg/dL (8.8-10.5); CREATININE 2.63 mg/dL (0.60-1.30); GLOMERULAR FILTR. RATE CALC 17.0 mL/min (>60); GLUCOSE,RANDOM 98.0 mg/dL (70-110); SODIUM SERUM 139.0 mmol/L (136-145); TOTAL PROTEIN, SERUM 6.2 g/dL (6.4-8.2); UREA NITROGEN, BLOOD 56.0 mg/dL (7-18)
[2025-01-29] MEDS ORDERED: IOHEXOL 300 MG/ML 50 ML VIAL ONE (07:46)
[2025-01-29] MEDS ORDERED: LIDOCAINE/PF 1% 30 ML VIAL ONE (07:46)
[2025-01-29] MEDS ORDERED: SODIUM BICARBONATE 50 MEQ/50 ML VIAL ONE (07:46)
[2025-01-29] MEDS: IOHEXOL 300 MG/ML 50 ML VIAL IARTER ONE (09:36)
[2025-01-29] MEDS: LIDOCAINE 1% 30 ML/SOD BICARB 8.4% 4 ML SQ ONE (09:36)
[2025-01-29] MEDS: HEPARIN SODIUM,PORCINE 1,000 UNITS/ML 10 ML VIAL IVP ONE (09:38)
[2025-01-29] MEDS: APIXABAN 2.5 MG TABLET PO SCH (22:16)
[2025-01-30] VITALS (15 sets, daily range): BP systolic 101–151; BP diastolic 56–86; PULSE 68–91; RESP 16–19; TEMP 97.9–99.5; O2SAT 9–99
[2025-01-30 06:04] LABS: PLATELET COUNT (AUTO) 201 K/uL (150-450); RED BLOOD CELL COUNT(AUTO) 2.79 MIL/uL (4.00-5.20); RED CELL DISTRIBUTION WIDTH 16.9 % (11.5-14.5); WHITE BLOOD COUNT (AUTO) 13.6 K/uL (4.5-11.0)
[2025-01-30 06:29] LABS: CALCIUM, TOTAL 9.1 mg/dL (8.8-10.5); CREATININE 3.98 mg/dL (0.60-1.30); GLOMERULAR FILTR. RATE CALC 11.0 mL/min (>60); GLUCOSE,RANDOM 113.0 mg/dL (70-110); SODIUM SERUM 138.0 mmol/L (136-145)
[2025-01-30 06:33] LABS: UREA NITROGEN, BLOOD 102.0 mg/dL (7-18)
[2025-01-30 06:55] LABS: RBC MORPHOLOGY COMMENT ABNORMAL RBC MORPH
[2025-01-30] MEDS: ACETAMINOPHEN 325 MG TABLET PO PRN (08:42)
[2025-01-30] MEDS ORDERED: HEPARIN SODIUM,PORCINE 1,000 UNITS/ML VIAL IVP ONE (08:43)
[2025-01-30] MEDS ORDERED: ALBUMIN HUMAN 25%-12.5GM/50ML IV BOTTLE IV ONE (08:43)
[2025-01-31 03:56] VITALS: BP 107/75; PULSE 56; RESP 18; TEMP 98.6; O2SAT 95
[2025-01-31 07:10] LABS: PLATELET COUNT (AUTO) 260 K/uL (150-450); RED BLOOD CELL COUNT(AUTO) 2.97 MIL/uL (4.00-5.20); RED CELL DISTRIBUTION WIDTH 17.2 % (11.5-14.5); WHITE BLOOD COUNT (AUTO) 14.4 K/uL (4.5-11.0)
[2025-01-31 07:37] LABS: CALCIUM, TOTAL 9.0 mg/dL (8.8-10.5); CREATININE 3.09 mg/dL (0.60-1.30); GLOMERULAR FILTR. RATE CALC 14.0 mL/min (>60); GLUCOSE,RANDOM 100.0 mg/dL (70-110); SODIUM SERUM 138.0 mmol/L (136-145); UREA NITROGEN, BLOOD 75.0 mg/dL (7-18)
[2025-01-31 08:24] VITALS: BP 102/76; PULSE 88; RESP 17; TEMP 99; O2SAT 99
[2025-01-31 11:52] VITALS: BP 95/66; PULSE 87; RESP 19; TEMP 99.3; O2SAT 95
[2025-01-31 16:13] VITALS: BP 113/82; PULSE 89; RESP 18; TEMP 98.8; O2SAT 96
[2025-01-31 20:00] VITALS: BP 106/65; PULSE 78; RESP 18; TEMP 97.5; O2SAT 96
[2025-02-01 01:02] VITALS: BP 121/93; PULSE 52; RESP 18; TEMP 99; O2SAT 97
[2025-02-01 04:21] VITALS: BP 116/72; PULSE 52; RESP 18; TEMP 97.7; O2SAT 94
[2025-02-01 07:27] LABS: PLATELET COUNT (AUTO) 291 K/uL (150-450); RED BLOOD CELL COUNT(AUTO) 3.06 MIL/uL (4.00-5.20); RED CELL DISTRIBUTION WIDTH 16.5 % (11.5-14.5); WHITE BLOOD COUNT (AUTO) 14.7 K/uL (4.5-11.0)
[2025-02-01 07:39] LABS: CALCIUM, TOTAL 8.5 mg/dL (8.8-10.5); CREATININE 4.2 mg/dL (0.60-1.30); GLOMERULAR FILTR. RATE CALC 10.0 mL/min (>60); GLUCOSE,RANDOM 93.0 mg/dL (70-110); SODIUM SERUM 133.0 mmol/L (136-145)
[2025-02-01 07:43] LABS: UREA NITROGEN, BLOOD 113.0 mg/dL (7-18)
[2025-02-01 08:47] VITALS: BP 106/70; PULSE 60; RESP 18; TEMP 97.7; O2SAT 97
[2025-02-01 16:58] VITALS: BP 92/66; PULSE 97; RESP 18; TEMP 97.7; O2SAT 97
[2025-02-01] MEDS ORDERED: SODIUM CHLORIDE 0.9% 500 ML IV ONE (17:07)
[2025-02-01 20:29] VITALS: BP 103/70; PULSE 104; RESP 20; TEMP 97.7; O2SAT 94
[2025-02-02] VITALS (13 sets, daily range): BP systolic 69–122; BP diastolic 43–98; PULSE 52–110; RESP 18–19; TEMP 97.5–98.6; O2SAT 90–98
[2025-02-02 06:51] LABS: PLATELET COUNT (AUTO) 314 K/uL (150-450); RED BLOOD CELL COUNT(AUTO) 3.10 MIL/uL (4.00-5.20); RED CELL DISTRIBUTION WIDTH 16.5 % (11.5-14.5); WHITE BLOOD COUNT (AUTO) 13.3 K/uL (4.5-11.0)
[2025-02-02 07:18] LABS: ASPARTATE AMINOTRANSFERASE 38.0 U/L (15-37); CALCIUM, TOTAL 8.5 mg/dL (8.8-10.5); CREATININE 4.64 mg/dL (0.60-1.30); GLOMERULAR FILTR. RATE CALC 9.0 mL/min (>60); GLUCOSE,RANDOM 98.0 mg/dL (70-110); SODIUM SERUM 135.0 mmol/L (136-145); TOTAL PROTEIN, SERUM 5.6 g/dL (6.4-8.2)
[2025-02-02 07:27] LABS: UREA NITROGEN, BLOOD 147.0 mg/dL (7-18)
[2025-02-02] MEDS: EPOETIN ALFA 10,000 UNITS/ML VIAL SQ SCH (09:04)
[2025-02-02] MEDS ORDERED: HEPARIN SODIUM,PORCINE 1,000 UNITS/ML VIAL ONE (12:00)
[2025-02-02] MEDS ORDERED: ALBUMIN HUMAN 25%-12.5GM/50ML IV BOTTLE ONE (12:00)
[2025-02-02 13:42] LABS: COVID AG,FIA SOURCE NASAL SWAB
[2025-02-02 14:20] LABS: SARS-COV2 (COVID) ANTIGEN,FIA Negative (Negative)
[2025-02-02] MEDS ORDERED: SODIUM CHLORIDE 0.9% 1,000 ML ONE (17:33)
[2025-02-02] MEDS ORDERED: ALBUMIN HUMAN 25%-12.5GM/50ML 50 ML IV PRN (17:45)
[2025-02-02] MEDS: ALBUMIN HUMAN 25%-25GM/100ML 100 ML IV ONE (18:54)
[2025-02-02] MEDS: HEPARIN SODIUM,PORCINE 1,000 UNITS/ML VIAL IVCATH ONE ×2 (22:04)
[2025-02-02] MEDS: ALBUMIN HUMAN 25%-12.5GM/50ML IV BOTTLE IV ONE (22:04)
[2025-02-02] MEDS: MIDODRINE HCL 2.5 MG TABLET PO SCH (22:10)
[2025-02-03] VITALS (8 sets, daily range): BP systolic 82–147; BP diastolic 40–119; PULSE 68–95; RESP 18–20; TEMP 98.1–98.8; O2SAT 96–99
[2025-02-03 07:05] LABS: PLATELET COUNT (AUTO) 313 K/uL (150-450); RED BLOOD CELL COUNT(AUTO) 3.21 MIL/uL (4.00-5.20); RED CELL DISTRIBUTION WIDTH 16.1 % (11.5-14.5); WHITE BLOOD COUNT (AUTO) 12.0 K/uL (4.5-11.0)
[2025-02-03 07:15] LABS: CALCIUM, TOTAL 8.0 mg/dL (8.8-10.5); CREATININE 2.19 mg/dL (0.60-1.30); GLOMERULAR FILTR. RATE CALC 21.0 mL/min (>60); GLUCOSE,RANDOM 97.0 mg/dL (70-110); SODIUM SERUM 136.0 mmol/L (136-145); UREA NITROGEN, BLOOD 55.0 mg/dL (7-18)
[2025-02-03] MEDS: SODIUM CHLORIDE 0.9% 250 ML IV STA (10:20)
[2025-02-03 10:25] LABS: GLUCOMETER DEV NAME(LOC) 6N.2C; GLUCOSE,POINT OF CARE 113 MG/DL (70-110)
[2025-02-03 10:41] LABS: BAND NEUTROPHILS % (MANUAL) 0 % (0-5)
[2025-02-03] MEDS: METOPROLOL TARTRATE 5 MG/5 ML VIAL IVP ONE (10:45)
[2025-02-03] MEDS ORDERED: AMIODARONE HCL 150 MG in DEXTROSE 5%-WATER 97 ML IV ONE (10:45)
[2025-02-03 10:46] LABS: PLATELET COUNT (AUTO) 319 K/uL (150-450); RED BLOOD CELL COUNT(AUTO) 3.18 MIL/uL (4.00-5.20); RED CELL DISTRIBUTION WIDTH 16.4 % (11.5-14.5); WHITE BLOOD COUNT (AUTO) 12.8 K/uL (4.5-11.0)
[2025-02-03 10:48] LABS: CALCIUM, TOTAL 8.3 mg/dL (8.8-10.5); CREATININE 2.38 mg/dL (0.60-1.30); GLOMERULAR FILTR. RATE CALC 19 mL/min (>60); GLUCOSE,RANDOM 111 mg/dL (70-110); SODIUM SERUM 136 mmol/L (136-145); UREA NITROGEN, BLOOD 59 mg/dL (7-18)
[2025-02-03 11:00] LABS: TROPONIN I-HIGH SENSITIVITY 120 ng/L (<51)
[2025-02-03] MEDS ORDERED: AMIODARONE HCL 360 MG in DEXTROSE 5%-WATER 242.8 ML IV ONE (11:00)
[2025-02-03 11:28] LABS: LYMPHOCYTES % (MANUAL) 7 % (22-44); SEGMENTED NEUTROPHILS % 93 % (40-70)
[2025-02-03] MEDS ORDERED: PHENYLEPHRINE 200 MG/D5%-WATER 250 ML IV PRN (14:00)
[2025-02-03] MEDS ORDERED: SODIUM CHLORIDE 0.9% 1,000 ML ONE (14:06)
[2025-02-03] MEDS: ALBUMIN HUMAN 25%-12.5GM/50ML 50 ML IV ONE (14:17)
[2025-02-03] MEDS: SODIUM CHLORIDE 0.9% 250 ML IV ONE (14:17)
[2025-02-03] MEDS: AMIODARONE HCL 360 MG in DEXTROSE 5%-WATER 242.8 ML IV ONE (14:17)
[2025-02-03] MEDS: DIGOXIN 250 MCG/ML 2 ML AMP IVP ONE ×2 (14:45→14:50)
[2025-02-03] MEDS: AMIODARONE HCL 150 MG in DEXTROSE 5%-WATER 97 ML IV ONE (14:50)
[2025-02-03] MEDS: POTASSIUM CHLORIDE 20 MEQ ER TABLET PO ONE (17:29)
[2025-02-03] MEDS: AMIODARONE HCL 540 MG in DEXTROSE 5%-WATER 250 ML IV ONE (20:31)
[2025-02-04] VITALS (14 sets, daily range): BP systolic 93–138; BP diastolic 54–80; PULSE 59–106; RESP 18; TEMP 97.7–98.6; O2SAT 97–98
[2025-02-04 06:31] LABS: PLATELET COUNT (AUTO) 302 K/uL (150-450); RED BLOOD CELL COUNT(AUTO) 2.94 MIL/uL (4.00-5.20); RED CELL DISTRIBUTION WIDTH 16.7 % (11.5-14.5); WHITE BLOOD COUNT (AUTO) 9.9 K/uL (4.5-11.0)
[2025-02-04 07:00] LABS: ASPARTATE AMINOTRANSFERASE 27.0 U/L (15-37); CALCIUM, TOTAL 8.4 mg/dL (8.8-10.5); CREATININE 2.68 mg/dL (0.60-1.30); GLOMERULAR FILTR. RATE CALC 17.0 mL/min (>60); GLUCOSE,RANDOM 93.0 mg/dL (70-110); SODIUM SERUM 134.0 mmol/L (136-145); TOTAL PROTEIN, SERUM 5.4 g/dL (6.4-8.2); UREA NITROGEN, BLOOD 71.0 mg/dL (7-18)
[2025-02-04] MEDS ORDERED: ALBUMIN HUMAN 25%-12.5GM/50ML IV BOTTLE ONE (09:36)
[2025-02-04] MEDS ORDERED: HEPARIN SODIUM,PORCINE 1,000 UNITS/ML VIAL ONE (09:36)
[2025-02-04] MEDS: HEPARIN SODIUM,PORCINE 1,000 UNITS/ML VIAL IVCATH ONE ×2 (15:37→15:38)
[2025-02-04] MEDS: ALBUMIN HUMAN 25%-12.5GM/50ML IV BOTTLE IV PRN (15:38)
[2025-02-04] MEDS: AMIODARONE HCL 750 MG in DEXTROSE 5%-WATER 485 ML IV SCH (15:53)
[2025-02-04] MEDS: AMIODARONE HCL 200 MG TABLET PO SCH (20:43)
[2025-02-04 20:47] LABS: APPEARANCE,URINE HAZY (CLEAR); GLUCOSE, URINE (UA) NEGATIVE (NEGATIVE); LEUKOCYTE ESTERASE ,URINE MODERATE (NEGATIVE); NITRATE,URINE NEGATIVE (NEGATIVE); OCCULT BLOOD,URINE SMALL (NEGATIVE); SPECIFIC GRAVITIY, URINE 1.017 (1.003-1.030)
[2025-02-04 20:59] LABS: SQUAMOUS EPITHELIAL CELL,UR Moderate /LPF (None Seen)
[2025-02-05] VITALS: BP 109/65; PULSE 60; RESP 18; TEMP 98.4; O2SAT 98
[2025-02-05 04:00] VITALS: BP 115/61; PULSE 56; RESP 18; TEMP 98.6; O2SAT 97
[2025-02-05 07:27] VITALS: BP 118/72; PULSE 64; RESP 18; TEMP 98.6; O2SAT 98
[2025-02-05 11:33] VITALS: BP 128/44; PULSE 68; RESP 18; TEMP 97.5; O2SAT 98
[2025-02-05 16:54] VITALS: BP 121/66; PULSE 65; RESP 18; TEMP 98; O2SAT 97
== END 2025-02-05 18:40 | DRG 870 ==
LOC: EMS 12:43 → EDH 14:55 → ICU 01-22 20:15 → 5N 01-28 14:32 → 4E 02-01 03:35 → UNDODISIN 02-03 11:44 → 5N 02-03 12:39
PROVIDERS: ADMIT Internal Medicine; ATTEND Internal Medicine
PROC: 5A0935A Assistance with Respiratory Ventilation, Less than 24 Consecutive Hours, High Flow/Velocity Cannula (ICD-10-PCS; 2025-01-21)
PROC: 5A1955Z Respiratory Ventilation, Greater than 96 Consecutive Hours (ICD-10-PCS; principal; 2025-01-22)
PROC: 0BH17EZ Insertion of Endotracheal Airway into Trachea, Via Natural or Artificial Opening (ICD-10-PCS; 2025-01-22)
PROC: 06HY33Z Insertion of Infusion Device into Lower Vein, Percutaneous Approach (ICD-10-PCS; 2025-01-22)
PROC: 30233N1 Transfusion of Nonautologous Red Blood Cells into Peripheral Vein, Percutaneous Approach (ICD-10-PCS; 2025-01-24)
PROC: 5A1D70Z Performance of Urinary Filtration, Intermittent, Less than 6 Hours Per Day (ICD-10-PCS; 2025-01-27)
PROC: 5A1D70Z Performance of Urinary Filtration, Intermittent, Less than 6 Hours Per Day (ICD-10-PCS; 2025-01-28)
PROC: 0JH63XZ Insertion of Tunneled Vascular Access Device into Chest Subcutaneous Tissue and Fascia, Percutaneous Approach (ICD-10-PCS; 2025-01-29)
PROC: 05HY33Z Insertion of Infusion Device into Upper Vein, Percutaneous Approach (ICD-10-PCS; 2025-01-29)
PROC: B51B1ZA Fluoroscopy of Right Lower Extremity Veins using Low Osmolar Contrast, Guidance (ICD-10-PCS; 2025-01-29)
PROC: 5A1D70Z Performance of Urinary Filtration, Intermittent, Less than 6 Hours Per Day (ICD-10-PCS; 2025-01-30)
PROC: 5A1D70Z Performance of Urinary Filtration, Intermittent, Less than 6 Hours Per Day (ICD-10-PCS; 2025-02-02)
PROC: 5A1D70Z Performance of Urinary Filtration, Intermittent, Less than 6 Hours Per Day (ICD-10-PCS; 2025-02-04)
DX: A41.50 Gram-negative sepsis, unspecified (principal); G92.8 Other toxic encephalopathy; I21.A1 Myocardial infarction type 2; J96.01 Acute respiratory failure with hypoxia; R65.21 Severe sepsis with septic shock; U07.1 COVID-19; J12.82 Pneumonia due to coronavirus disease 2019; N17.0 Acute kidney failure with tubular necrosis; N18.6 End stage renal disease; R57.0 Cardiogenic shock; N39.0 Urinary tract infection, site not specified; I12.0 Hypertensive chronic kidney disease with stage 5 chronic kidney disease or end stage renal disease; Z16.12 Extended spectrum beta lactamase (ESBL) resistance; D69.6 Thrombocytopenia, unspecified; E66.9 Obesity, unspecified; I48.0 Paroxysmal atrial fibrillation; B96.20 Unspecified Escherichia coli [E. coli] as the cause of diseases classified elsewhere; N20.0 Calculus of kidney; E87.6 Hypokalemia; D63.1 Anemia in chronic kidney disease; Z68.38 Body mass index [BMI] 38.0-38.9, adult; E78.00 Pure hypercholesterolemia, unspecified; I16.0 Hypertensive urgency; Z79.82 Long term (current) use of aspirin; Z79.899 Other long term (current) drug therapy; Z87.11 Personal history of peptic ulcer disease; Z99.2 Dependence on renal dialysis
CPT/HCPCS: 36245; 36561; 36600; 51702; 70450; 71045; 71250; 72141; 72146; 72148; 72192; 73200; 74150; 76000; 80048; 80053; 80076; 81001; 81002; 82550; 82570; 82805; 82962; 83605; 83735; 83880; 84100; 84145; 84300; 84484; 84540; 85007; 85014; 85018; 85025; 85027; 85379; 85610; 85730; 86850; 86900; 86901; 86923; 87040; 87077; 87081; 87086; 87186; 87205; 87340; 87804; 90935; 90947; 92526; 92610; 93005; 93306; 93931; 93971; 94002; 94003; 96365; 97163; 97167; 97530; 97535; 99291; G0378; J0131; J0282; J0360; J0696; J0885; J1100; J1160; J1644; J1956; J2185; J2270; J2370; J2470; J2543; J2704; J3010; J3480; J3490; J7030; J7040; J7050; J7060; P9016; P9046; P9047; Q9967; 36415-L1; 36415-TC

== ENCOUNTER 2025-02-09 13:47 | Emergency (ER) | payer MEDICARE, OTHER ==
[~2025-02-09] VITALS: Ht 162.6 cm; Wt 79.5 kg
[2025-02-09 14:30] VITALS: TEMP 98
[2025-02-09 20:16] LABS: PLATELET COUNT (AUTO) 182 K/uL (150-450); RED BLOOD CELL COUNT(AUTO) 2.75 MIL/uL (4.00-5.20); RED CELL DISTRIBUTION WIDTH 16.9 % (11.5-14.5); WHITE BLOOD COUNT (AUTO) 6.5 K/uL (4.5-11.0)
[2025-02-09 20:21] LABS: CALCIUM, TOTAL 8.5 mg/dL (8.8-10.5); CREATININE 1.28 mg/dL (0.60-1.30); GLOMERULAR FILTR. RATE CALC 40.0 mL/min (>60); GLUCOSE,RANDOM 107.0 mg/dL (70-110); SODIUM SERUM 134.0 mmol/L (136-145); UREA NITROGEN, BLOOD 20.0 mg/dL (7-18)
[2025-02-09 21:13] VITALS: BP 128/74; PULSE 59; RESP 16; O2SAT 97
[2025-02-09] MEDS ORDERED: TRAM50TA5 PO (21:30)
[2025-02-09] MEDS ORDERED: LIDO-57 TP (21:31)
== END 2025-02-09 23:22 ==
LOC: EMS 13:47
DX: S09.90XA Unspecified injury of head, initial encounter (principal); M80.08XA Age-related osteoporosis with current pathological fracture, vertebra(e), initial encounter for fracture; E78.00 Pure hypercholesterolemia, unspecified; I12.0 Hypertensive chronic kidney disease with stage 5 chronic kidney disease or end stage renal disease; N18.6 End stage renal disease; Z79.82 Long term (current) use of aspirin; Z99.2 Dependence on renal dialysis; Z79.899 Other long term (current) drug therapy; W06.XXXA Fall from bed, initial encounter; Y93.89 Activity, other specified; Y92.89 Other specified places as the place of occurrence of the external cause; Y99.8 Other external cause status
CPT/HCPCS: 70450; 72070; 72100; 72125; 80048; 85025; 99284

== ENCOUNTER 2025-02-22 09:01 | Inpatient (IN) | payer MEDICARE, OTHER ==
[~2025-02-22] VITALS: Ht 157.5 cm; Wt 85.2 kg
[~2025-02-22 09:01] MED LIST changes: +LIDO-57 TP; +TRAM50TA5 PO
[2025-02-22 09:33] LABS: PLATELET COUNT (AUTO) 282 K/uL (150-450); RED BLOOD CELL COUNT(AUTO) 2.62 MIL/uL (4.00-5.20); RED CELL DISTRIBUTION WIDTH 16.2 % (11.5-14.5); WHITE BLOOD COUNT (AUTO) 14.3 K/uL (4.5-11.0)
[2025-02-22 09:41] LABS: CALCIUM, TOTAL 8.7 mg/dL (8.8-10.5); CREATININE 1.6 mg/dL (0.60-1.30); GLOMERULAR FILTR. RATE CALC 31.0 mL/min (>60); GLUCOSE,RANDOM 135.0 mg/dL (70-110); SODIUM SERUM 136.0 mmol/L (136-145); UREA NITROGEN, BLOOD 27.0 mg/dL (7-18)
[2025-02-22 09:46] LABS: ASPARTATE AMINOTRANSFERASE 19.0 U/L (15-37); TOTAL PROTEIN, SERUM 5.5 g/dL (6.4-8.2)
[2025-02-22 09:47] LABS: TROPONIN I-HIGH SENSITIVITY 24 ng/L (<51)
[2025-02-22 11:24] LABS: APPEARANCE,URINE TURBID (CLEAR); GLUCOSE, URINE (UA) NEGATIVE (NEGATIVE); LEUKOCYTE ESTERASE ,URINE LARGE (NEGATIVE); NITRATE,URINE NEGATIVE (NEGATIVE); OCCULT BLOOD,URINE SMALL (NEGATIVE); SPECIFIC GRAVITIY, URINE 1.004 (1.003-1.030)
[2025-02-22 11:44] LABS: SQUAMOUS EPITHELIAL CELL,UR Few /LPF (None Seen); YEAST,URINE Moderate /HPF (None Seen)
[2025-02-22] MEDS: ACETAMINOPHEN 1000 MG/ISO-OSM 100 ML IV ONE (13:28)
[2025-02-22] MEDS: CefTRIAXone 1 GM/DEXTROSE 50 ML IV ONE (13:28)
[2025-02-22] MEDS ORDERED: ONDANSETRON HCL 4 MG/2 ML VIAL IVP PRN (14:00)
[2025-02-22] MEDS ORDERED: MAGNESIUM HYDROXIDE SUSPENSION 30 ML UDCUP PO PRN (14:00)
[2025-02-22] MEDS ORDERED: BISACODYL 10 MG RECTAL RECTAL SUPPOSITORY PR PRN (14:00)
[2025-02-22] MEDS: ASPIRIN 81 MG DR TABLET PO SCH (14:21)
[2025-02-22 14:45] VITALS: BP 128/95; PULSE 78; RESP 19; TEMP 98.4; O2SAT 100
[2025-02-22] MEDS ORDERED: HEPARIN SODIUM,PORCINE 5,000 UNITS/ML VIAL SQ SCH (16:00)
[2025-02-22 19:31] VITALS: BP 154/74; PULSE 72; RESP 18; TEMP 97.9; O2SAT 97
[2025-02-22] MEDS: POTASSIUM CHLORIDE 10% 40 MEQ/30 ML LIQUID UDCUP PO ONE (20:34)
[2025-02-22] MEDS: DOCUSATE SODIUM 100 MG CAPSULE PO SCH (20:35)
[2025-02-22] MEDS: LORazepam 2 MG/ML VIAL IVP ONE (20:35)
[2025-02-22] MEDS: ATORVASTATIN CALCIUM 40 MG TABLET PO SCH (20:35)
[2025-02-22] MEDS: POTASSIUM CHLORIDE 20 MEQ ER TABLET PO ONE (23:29)
[2025-02-23 00:14] VITALS: BP 147/70; PULSE 87; RESP 20; TEMP 99.1; O2SAT 96
[2025-02-23] MEDS: ACETAMINOPHEN 325 MG TABLET PO PRN (02:40)
[2025-02-23 04:07] VITALS: BP 142/79; PULSE 81; RESP 19; TEMP 98.6; O2SAT 98
[2025-02-23 07:16] LABS: PLATELET COUNT (AUTO) 290 K/uL (150-450); RED BLOOD CELL COUNT(AUTO) 2.61 MIL/uL (4.00-5.20); RED CELL DISTRIBUTION WIDTH 16.4 % (11.5-14.5); WHITE BLOOD COUNT (AUTO) 18.0 K/uL (4.5-11.0)
[2025-02-23 07:36] LABS: CALCIUM, TOTAL 8.6 mg/dL (8.8-10.5); CREATININE 1.55 mg/dL (0.60-1.30); GLOMERULAR FILTR. RATE CALC 32.0 mL/min (>60); GLUCOSE,RANDOM 88.0 mg/dL (70-110); SODIUM SERUM 138.0 mmol/L (136-145); UREA NITROGEN, BLOOD 28.0 mg/dL (7-18)
[2025-02-23 07:40] VITALS: BP 128/68; PULSE 73; RESP 20; TEMP 98.2; O2SAT 96
[2025-02-23] MEDS: PANTOPRAZOLE SODIUM 40 MG DR TABLET PO SCH (07:59)
[2025-02-23] MEDS: METOPROLOL TARTRATE 25 MG TABLET PO SCH (08:00)
[2025-02-23 12:05] VITALS: BP 119/55; PULSE 81; RESP 20; TEMP 99.3; O2SAT 99
[2025-02-23] MEDS: FUROSEMIDE 20 MG TABLET PO SCH (13:09)
[2025-02-23] MEDS: CefTRIAXone 1 GM/DEXTROSE 50 ML IV SCH (13:09)
[2025-02-23] MEDS: FOLIC ACID/VIT B COMPLEX AND C TABLET PO SCH (13:09)
[2025-02-23 15:58] VITALS: BP 117/92; PULSE 95; RESP 19; TEMP 98.4; O2SAT 96
[2025-02-23 20:00] VITALS: BP 129/81; PULSE 94; RESP 20; TEMP 98.4; O2SAT 94
[2025-02-24 00:51] VITALS: BP 159/82; PULSE 81; RESP 20; TEMP 98.8; O2SAT 96
[2025-02-24 06:33] VITALS: BP 152/77; PULSE 78; RESP 20; TEMP 98.2; O2SAT 96
[2025-02-24 06:45] LABS: CALCIUM, TOTAL 8.7 mg/dL (8.8-10.5); CREATININE 1.3 mg/dL (0.60-1.30); GLOMERULAR FILTR. RATE CALC 39.0 mL/min (>60); GLUCOSE,RANDOM 95.0 mg/dL (70-110); SODIUM SERUM 142.0 mmol/L (136-145); UREA NITROGEN, BLOOD 24.0 mg/dL (7-18)
[2025-02-24 06:58] LABS: % IRON SATURATION 28.9 % (22-44); IRON, SERUM 42.0 mcg/dL (50-175)
[2025-02-24] MEDS ORDERED: LIDOCAINE/PF 1% 30 ML VIAL ONE (08:09)
[2025-02-24] MEDS ORDERED: SODIUM BICARBONATE 50 MEQ/50 ML VIAL ONE (08:09)
[2025-02-24 08:20] VITALS: BP 149/86; PULSE 79; RESP 19; TEMP 98; O2SAT 98
[2025-02-24 11:05] VITALS: BP 145/75; PULSE 82; RESP 18; TEMP 98.4; O2SAT 95
[2025-02-24 11:59] LABS: PLATELET COUNT (AUTO) 319 K/uL (150-450); RED BLOOD CELL COUNT(AUTO) 2.64 MIL/uL (4.00-5.20); RED CELL DISTRIBUTION WIDTH 16.4 % (11.5-14.5); WHITE BLOOD COUNT (AUTO) 15.4 K/uL (4.5-11.0)
[2025-02-24 15:42] VITALS: BP 144/77; PULSE 76; RESP 16; TEMP 98.1; O2SAT 92
[2025-02-24] MEDS: POTASSIUM CHL 10 MEQ/WATER 50 ML IV SCH (17:59)
[2025-02-24 20:25] VITALS: BP 151/73; PULSE 72; RESP 18; TEMP 97.9; O2SAT 97
[2025-02-24] MEDS ORDERED: SODIUM CHLORIDE 0.9% 1,000 ML ONE (21:56)
[2025-02-24] MEDS: ZOLPIDEM TARTRATE 5 MG TABLET PO PRN (22:36)
[2025-02-25] VITALS (8 sets, daily range): BP systolic 132–159; BP diastolic 65–90; PULSE 72–85; RESP 19–20; TEMP 97.5–99.7; O2SAT 95–98
[2025-02-25 06:47] LABS: CREATININE 1.21 mg/dL (0.60-1.30); GLOMERULAR FILTR. RATE CALC 42.0 mL/min (>60); GLUCOSE,RANDOM 100.0 mg/dL (70-110); SODIUM SERUM 143.0 mmol/L (136-145); UREA NITROGEN, BLOOD 27.0 mg/dL (7-18)
[2025-02-25 06:53] LABS: CALCIUM, TOTAL 8.3 mg/dL (8.8-10.5)
[2025-02-25 07:09] LABS: PLATELET COUNT (AUTO) 359 K/uL (150-450); RED BLOOD CELL COUNT(AUTO) 2.62 MIL/uL (4.00-5.20); RED CELL DISTRIBUTION WIDTH 16.7 % (11.5-14.5); WHITE BLOOD COUNT (AUTO) 17.8 K/uL (4.5-11.0)
[2025-02-25] MEDS ORDERED: 0.9% SODIUM CHLORIDE 10 ML SYRINGE IVP PRN (10:15)
[2025-02-25] MEDS: *CLINICAL-MEROPENEM DOSING CLINICAL ONE (10:19)
[2025-02-25] MEDS: SODIUM CHLORIDE 0.9% 250 ML IV ONE (11:23)
[2025-02-25 11:33] LABS: PLATELET COUNT (AUTO) 339 K/uL (150-450); RED BLOOD CELL COUNT(AUTO) 2.53 MIL/uL (4.00-5.20); RED CELL DISTRIBUTION WIDTH 16.6 % (11.5-14.5); WHITE BLOOD COUNT (AUTO) 15.9 K/uL (4.5-11.0)
[2025-02-25 11:38] LABS: CALCIUM, TOTAL 8.3 mg/dL (8.8-10.5); CREATININE 1.15 mg/dL (0.60-1.30); GLOMERULAR FILTR. RATE CALC 45 mL/min (>60); GLUCOSE,RANDOM 97 mg/dL (70-110); SODIUM SERUM 142 mmol/L (136-145); UREA NITROGEN, BLOOD 26 mg/dL (7-18)
[2025-02-25 11:43] LABS: ASPARTATE AMINOTRANSFERASE 19 U/L (15-37); LACTATE DEHYDROGENASE 298 U/L (81-234); TOTAL PROTEIN, SERUM 5.6 g/dL (6.4-8.2)
[2025-02-25 11:55] LABS: LACTIC ACID 1.1 mmol/L (0.4-2.0)
[2025-02-25] MEDS: RINGERS SOLUTION,LACTATED 500 ML IV ONE (12:23)
[2025-02-25] MEDS: MEROPENEM 1 GM in SODIUM CHLORIDE 0.9% 50 ML IV SCH ×2 (12:26→23:29)
[2025-02-25] MEDS ORDERED: SODIUM CHLORIDE 0.9% 100 ML ONE (14:16)
[2025-02-25] MEDS ORDERED: 0.9% SODIUM CHLORIDE 10 ML SYRINGE IVP ONE (14:16)
[2025-02-25] MEDS ORDERED: IOHEXOL 350 MG/ML 100 ML VIAL ONE (14:16)
[2025-02-25] MEDS ORDERED: LATA2.5D7 OU (16:51)
[2025-02-25] MEDS: POTASSIUM CHLORIDE 10% 40 MEQ/30 ML LIQUID UDCUP PO ONE (16:54)
[2025-02-25] MEDS ORDERED: NITROGLYCERIN 0.4 MG SUBLINGUAL TABLET #25 SL PRN ×2 (18:45→19:15)
[2025-02-25] MEDS ORDERED: ASPIRIN 81 MG CHEWABLE TABLET PO ONE (18:45)
[2025-02-25 18:55] LABS: GLUCOMETER DEV NAME(LOC) 5N.1D; GLUCOSE,POINT OF CARE 102 MG/DL (70-110)
[2025-02-25 19:11] LABS: TROPONIN I-HIGH SENSITIVITY 30 ng/L (<51)
[2025-02-25] MEDS: LACTULOSE 200 GM/300 ML RECTAL SOLUTION PR ONE ×2 (19:15→23:48)
[2025-02-25] MEDS: ASPIRIN 81 MG CHEWABLE TABLET PO ONE (20:41)
[2025-02-25] MEDS: METOPROLOL TARTRATE 25 MG TABLET PO SCH (21:39)
[2025-02-25 21:57] LABS: TROPONIN I-HIGH SENSITIVITY 34 ng/L (<51)
[2025-02-25] MEDS: SODIUM PHOSPHATE,MONO-DIBASIC 133 ML ENEMA PR ONE (23:28)
[2025-02-25] MEDS ORDERED: SODIUM CHLORIDE 0.9% IRRIG BTL 1,000 ML IRRIG ONE (23:45)
[2025-02-26 03:19] LABS: APPEARANCE,URINE CLEAR (CLEAR); GLUCOSE, URINE (UA) NEGATIVE (NEGATIVE); LEUKOCYTE ESTERASE ,URINE SMALL (NEGATIVE); NITRATE,URINE NEGATIVE (NEGATIVE); OCCULT BLOOD,URINE NEGATIVE (NEGATIVE); SPECIFIC GRAVITIY, URINE 1.027 (1.003-1.030)
[2025-02-26 03:34] LABS: SQUAMOUS EPITHELIAL CELL,UR Few /LPF (None Seen)
[2025-02-26 04:17] VITALS: BP 143/69; PULSE 52; RESP 19; TEMP 97.7; O2SAT 99
[2025-02-26 06:07] LABS: PLATELET COUNT (AUTO) 340 K/uL (150-450); RED BLOOD CELL COUNT(AUTO) 2.47 MIL/uL (4.00-5.20); RED CELL DISTRIBUTION WIDTH 16.3 % (11.5-14.5); WHITE BLOOD COUNT (AUTO) 15.3 K/uL (4.5-11.0)
[2025-02-26 06:15] LABS: CALCIUM, TOTAL 8.3 mg/dL (8.8-10.5); CREATININE 1.24 mg/dL (0.60-1.30); GLOMERULAR FILTR. RATE CALC 41.0 mL/min (>60); GLUCOSE,RANDOM 88.0 mg/dL (70-110); SODIUM SERUM 144.0 mmol/L (136-145); UREA NITROGEN, BLOOD 23.0 mg/dL (7-18)
[2025-02-26 08:15] VITALS: BP 136/99; PULSE 58; RESP 18; TEMP 98.1; O2SAT 99
[2025-02-26] MEDS: RINGERS SOLUTION,LACTATED 1,000 ML IV SCH (11:48)
[2025-02-26 11:56] VITALS: BP 120/90; PULSE 71; RESP 17; TEMP 98.8; O2SAT 96
[2025-02-26 16:46] VITALS: BP 140/83; PULSE 60; RESP 18; TEMP 98.4; O2SAT 98
[2025-02-26 20:52] VITALS: BP 151/64; PULSE 56; RESP 19; TEMP 97.5; O2SAT 99
[2025-02-27] VITALS (7 sets, daily range): BP systolic 102–153; BP diastolic 60–77; PULSE 54–63; RESP 18–20; TEMP 97.3–98.6; O2SAT 94–99
[2025-02-27 06:02] LABS: PLATELET COUNT (AUTO) 368 K/uL (150-450); RED BLOOD CELL COUNT(AUTO) 2.57 MIL/uL (4.00-5.20); RED CELL DISTRIBUTION WIDTH 16.7 % (11.5-14.5); WHITE BLOOD COUNT (AUTO) 14.9 K/uL (4.5-11.0)
[2025-02-27 06:20] LABS: CALCIUM, TOTAL 8.1 mg/dL (8.8-10.5); CREATININE 1.05 mg/dL (0.60-1.30); GLOMERULAR FILTR. RATE CALC 50.0 mL/min (>60); GLUCOSE,RANDOM 95.0 mg/dL (70-110); SODIUM SERUM 142.0 mmol/L (136-145); UREA NITROGEN, BLOOD 18.0 mg/dL (7-18)
[2025-02-27] MEDS: HYDROCODONE/ACETAMINOPHEN 5-325 MG TABLET PO PRN (10:03)
[2025-02-27] MEDS ORDERED: SODIUM CHLORIDE 0.9% 1,000 ML ONE (12:36)
[2025-02-27] MEDS: POTASSIUM CHL 10 MEQ/WATER 50 ML IV SCH (13:15)
[2025-02-27] MEDS: POTASSIUM CHLORIDE 10% 40 MEQ/30 ML LIQUID UDCUP PO ONE (15:51)
[2025-02-28 01:13] VITALS: BP 142/74; PULSE 62; RESP 18; TEMP 98.2; O2SAT 97
[2025-02-28 07:50] LABS: PLATELET COUNT (AUTO) 326 K/uL (150-450); RED BLOOD CELL COUNT(AUTO) 2.48 MIL/uL (4.00-5.20); RED CELL DISTRIBUTION WIDTH 16.4 % (11.5-14.5); WHITE BLOOD COUNT (AUTO) 15.8 K/uL (4.5-11.0)
[2025-02-28 08:00] VITALS: BP 149/107; PULSE 67; RESP 19; TEMP 97.5; O2SAT 100
[2025-02-28 08:20] LABS: ASPARTATE AMINOTRANSFERASE 22 U/L (15-37); CALCIUM, TOTAL 7.9 mg/dL (8.8-10.5); CREATININE 0.80 mg/dL (0.60-1.30); GLOMERULAR FILTR. RATE CALC > 60 mL/min (>60); GLUCOSE,RANDOM 95 mg/dL (70-110); SODIUM SERUM 142 mmol/L (136-145); TOTAL PROTEIN, SERUM 5.3 g/dL (6.4-8.2); UREA NITROGEN, BLOOD 13 mg/dL (7-18)
[2025-02-28 09:00] VITALS: BP 150/77; PULSE 81
[2025-02-28] MEDS: MEROPENEM 1 GM in SODIUM CHLORIDE 0.9% 50 ML IV SCH (10:00)
[2025-02-28] MEDS ORDERED: SODIUM CHLORIDE 0.9% 500 ML IV ONE (11:05)
[2025-02-28] MEDS ORDERED: FLUT16H NASAL (13:27)
[2025-02-28] MEDS ORDERED: OS500 PO (13:27)
[2025-02-28] MEDS ORDERED: FERR325T23 PO (13:27)
[2025-02-28] MEDS ORDERED: ASPI-1444 PO (13:27)
[2025-02-28] MEDS ORDERED: HYDR10TA31 PO (13:27)
[2025-02-28] MEDS ORDERED: AZEL6DRO5 OU (13:27)
[2025-02-28] MEDS ORDERED: OMEP40CA21 PO (13:27)
[2025-02-28] MEDS ORDERED: ACET-3800 PO (13:27)
[2025-02-28] MEDS ORDERED: SENN8.6T20 PO (13:27)
[2025-02-28] MEDS ORDERED: METO-408 PO (13:27)
[2025-02-28 16:16] VITALS: BP 148/59; PULSE 58; RESP 19; TEMP 98.1; O2SAT 98
[2025-02-28 20:30] VITALS: BP 145/77; PULSE 67; RESP 18; TEMP 98.6; O2SAT 97
[2025-03-01 05:40] VITALS: BP 166/73; PULSE 77; RESP 20; TEMP 99.1; O2SAT 97
[2025-03-01] MEDS: ALENDRONATE SODIUM 70 MG TABLET PO SCH (06:00)
[2025-03-01 12:09] LABS: PLATELET COUNT (AUTO) 339 K/uL (150-450); RED BLOOD CELL COUNT(AUTO) 2.33 MIL/uL (4.00-5.20); RED CELL DISTRIBUTION WIDTH 16.1 % (11.5-14.5); WHITE BLOOD COUNT (AUTO) 13.0 K/uL (4.5-11.0)
[2025-03-01] MEDS ORDERED: INDIUM IN-111 OXYQUINOLINE/.5MCL ISOTOPE 1 EA INJ INJ ONE (12:30)
[2025-03-01] MEDS ORDERED: LIDOCAINE 3% CREAM 28 GM TUBE TP PRN (15:45)
[2025-03-01] MEDS: MORPHINE SULFATE 4 MG/ML SYRINGE IVP PRN (17:09)
[2025-03-01 19:34] VITALS: BP 140/71; PULSE 86; RESP 18; TEMP 99.3; O2SAT 94
[2025-03-01 20:54] VITALS: BP 142/78; PULSE 87; RESP 18; TEMP 99.2; O2SAT 95
[2025-03-02 04:22] VITALS: BP 133/98; PULSE 96; RESP 18; TEMP 98.8; O2SAT 96
[2025-03-02 07:15] LABS: CALCIUM, TOTAL 7.8 mg/dL (8.8-10.5); CREATININE 0.86 mg/dL (0.60-1.30); GLOMERULAR FILTR. RATE CALC > 60 mL/min (>60); GLUCOSE,RANDOM 83 mg/dL (70-110); SODIUM SERUM 144 mmol/L (136-145); UREA NITROGEN, BLOOD 9 mg/dL (7-18)
[2025-03-02 07:23] LABS: PHOSPHORUS 3.1 mg/dL (2.5-4.9)
[2025-03-02 09:11] VITALS: BP 145/60; PULSE 74; RESP 18; TEMP 98; O2SAT 98
[2025-03-02] MEDS ORDERED: SESTAMIBI TC99M/UD ISOTOPE 1 EA INJ INJ ONE ×2 (09:20→11:50)
[2025-03-02] MEDS: POTASSIUM CHL 10 MEQ/WATER 50 ML IV SCH (11:13)
[2025-03-02 16:00] VITALS: BP 136/78; PULSE 82; RESP 18; TEMP 98.1; O2SAT 99
[2025-03-02 21:27] VITALS: BP 140/84; PULSE 80; RESP 18; TEMP 98.1; O2SAT 94
[2025-03-02 23:09] VITALS: BP 119/89; RESP 20; O2SAT 95
[2025-03-03] MEDS ORDERED: SODIUM CHLORIDE 0.9% 500 ML IV ONE (00:53)
[2025-03-03 02:48] VITALS: BP 117/88; PULSE 78; RESP 18; TEMP 98.4; O2SAT 96
[2025-03-03 06:33] LABS: PLATELET COUNT (AUTO) 346 K/uL (150-450); RED BLOOD CELL COUNT(AUTO) 2.40 MIL/uL (4.00-5.20); RED CELL DISTRIBUTION WIDTH 16.4 % (11.5-14.5); WHITE BLOOD COUNT (AUTO) 17.1 K/uL (4.5-11.0)
[2025-03-03 07:12] LABS: CALCIUM, TOTAL 8.6 mg/dL (8.8-10.5); CREATININE 0.71 mg/dL (0.60-1.30); GLOMERULAR FILTR. RATE CALC > 60 mL/min (>60); GLUCOSE,RANDOM 91 mg/dL (70-110); SODIUM SERUM 147 mmol/L (136-145); UREA NITROGEN, BLOOD 17 mg/dL (7-18)
[2025-03-03 07:16] LABS: PHOSPHORUS 2.1 mg/dL (2.5-4.9)
[2025-03-03 09:22] VITALS: BP 134/88; PULSE 88; RESP 18; TEMP 98; O2SAT 95
[2025-03-03] MEDS: SODIUM,POTASSIUM PHOSPHATES POWDER PACKET PO SCH (09:53)
[2025-03-03] MEDS: MAGNESIUM SULFATE 2 GM/WATER 50 ML IV ONE (12:52)
[2025-03-03 19:37] VITALS: BP 128/77; PULSE 74; RESP 18; TEMP 98.4; O2SAT 95
[2025-03-04 04:40] VITALS: BP 126/70; PULSE 72; RESP 18; TEMP 98.1; O2SAT 95
[2025-03-04 06:04] LABS: PLATELET COUNT (AUTO) 345 K/uL (150-450); RED BLOOD CELL COUNT(AUTO) 2.22 MIL/uL (4.00-5.20); RED CELL DISTRIBUTION WIDTH 16.0 % (11.5-14.5); WHITE BLOOD COUNT (AUTO) 14.2 K/uL (4.5-11.0)
[2025-03-04 06:24] LABS: ASPARTATE AMINOTRANSFERASE 28 U/L (15-37); CALCIUM, TOTAL 8.4 mg/dL (8.8-10.5); CREATININE 0.59 mg/dL (0.60-1.30); GLOMERULAR FILTR. RATE CALC > 60 mL/min (>60); GLUCOSE,RANDOM 91 mg/dL (70-110); SODIUM SERUM 146 mmol/L (136-145); TOTAL PROTEIN, SERUM 5.6 g/dL (6.4-8.2); UREA NITROGEN, BLOOD 11 mg/dL (7-18)
[2025-03-04] MEDS ORDERED: POTASSIUM CHL 10 MEQ/WATER 50 ML IV SCH (07:00)
[2025-03-04 07:11] LABS: PHOSPHORUS 2.0 mg/dL (2.5-4.9)
[2025-03-04 07:25] VITALS: BP 133/82; PULSE 95; RESP 20; TEMP 99.9; O2SAT 97
[2025-03-04] MEDS ORDERED: GADOTERATE MEGLUMINE 10 MMOL/20 ML VIAL IVP ONE (09:25)
[2025-03-04] MEDS: POTASSIUM CHL 10 MEQ/WATER 50 ML IV ONE ×2 (10:12→12:09)
[2025-03-04] MEDS: POTASSIUM CHLORIDE 10% 40 MEQ/30 ML LIQUID UDCUP PO ONE (10:13)
[2025-03-04] MEDS ORDERED: LORazepam 2 MG/ML VIAL IVP ONE (14:30)
[2025-03-04 15:33] VITALS: BP 105/55; PULSE 79; RESP 20; TEMP 98.6; O2SAT 97
[2025-03-04] MEDS ORDERED: SODIUM CHLORIDE 0.9% 1,000 ML ONE (18:27)
[2025-03-04] MEDS: SODIUM CHLORIDE 0.9% 1,000 ML IV ONE (18:28)
[2025-03-04 20:12] VITALS: BP 117/92; PULSE 76; RESP 18; TEMP 98.4; O2SAT 96
[2025-03-05 04:43] VITALS: BP 122/97; PULSE 99; RESP 18; TEMP 99.1; O2SAT 93
[2025-03-05 07:21] LABS: PLATELET COUNT (AUTO) 355 K/uL (150-450); RED BLOOD CELL COUNT(AUTO) 2.30 MIL/uL (4.00-5.20); RED CELL DISTRIBUTION WIDTH 15.8 % (11.5-14.5); WHITE BLOOD COUNT (AUTO) 13.5 K/uL (4.5-11.0)
[2025-03-05 07:32] LABS: CALCIUM, TOTAL 8.2 mg/dL (8.8-10.5); CREATININE 0.69 mg/dL (0.60-1.30); GLOMERULAR FILTR. RATE CALC > 60 mL/min (>60); GLUCOSE,RANDOM 97 mg/dL (70-110); SODIUM SERUM 146 mmol/L (136-145); UREA NITROGEN, BLOOD 10 mg/dL (7-18)
[2025-03-05 08:11] VITALS: BP 126/93; PULSE 76; RESP 18; TEMP 99; O2SAT 96
[2025-03-05] MEDS: POTASSIUM CHLORIDE 20 MEQ ER TABLET PO ONE (09:03)
[2025-03-05] MEDS: POTASSIUM PHOS,M-BASIC-D-BASIC 20 MEQ in DEXTROSE 5%-WATER 100 ML IV ONE ×2 (09:12→23:22)
[2025-03-05] MEDS: DEXTROSE 5%-WATER 500 ML IV ONE (15:28)
[2025-03-05 15:30] VITALS: PULSE 63; RESP 20; O2SAT 99
[2025-03-05] MEDS: ALBUTEROL SULFATE 2.5 MG/0.5 ML NEB SOLUTION NEB PRN (15:34)
[2025-03-05 15:45] VITALS: PULSE 64; RESP 20; O2SAT 99
[2025-03-05 16:34] VITALS: BP 124/56; PULSE 63; RESP 18; TEMP 98.6; O2SAT 96
[2025-03-05] MEDS ORDERED: SODIUM CHLORIDE 0.9% 500 ML IV ONE (17:17)
[2025-03-05 20:00] VITALS: BP 141/73; PULSE 74; RESP 18; TEMP 98.8; O2SAT 96
[2025-03-05 21:34] LABS: CALCIUM, TOTAL 7.7 mg/dL (8.8-10.5); CREATININE 0.79 mg/dL (0.60-1.30); GLOMERULAR FILTR. RATE CALC > 60 mL/min (>60); GLUCOSE,RANDOM 129 mg/dL (70-110); SODIUM SERUM 142 mmol/L (136-145); UREA NITROGEN, BLOOD 11 mg/dL (7-18)
[2025-03-05 21:38] LABS: PHOSPHORUS 1.9 mg/dL (2.5-4.9)
[2025-03-06 04:00] VITALS: BP 138/81; PULSE 67; RESP 18; TEMP 98.6; O2SAT 95
[2025-03-06 06:41] LABS: PLATELET COUNT (AUTO) 344 K/uL (150-450); RED BLOOD CELL COUNT(AUTO) 2.28 MIL/uL (4.00-5.20); RED CELL DISTRIBUTION WIDTH 16.2 % (11.5-14.5); WHITE BLOOD COUNT (AUTO) 14.1 K/uL (4.5-11.0)
[2025-03-06 06:50] LABS: CALCIUM, TOTAL 7.8 mg/dL (8.8-10.5); CREATININE 0.58 mg/dL (0.60-1.30); GLOMERULAR FILTR. RATE CALC > 60 mL/min (>60); GLUCOSE,RANDOM 106 mg/dL (70-110); SODIUM SERUM 144 mmol/L (136-145); UREA NITROGEN, BLOOD 9 mg/dL (7-18)
[2025-03-06] MEDS: BENZONATATE 100 MG CAPSULE PO PRN (09:16)
[2025-03-06 09:17] VITALS: BP 121/93; RESP 19
[2025-03-06] MEDS ORDERED: GuaiFENesin/D-METHORPHAN [SUGAR-FREE] 200-20MG/10 ML SYRUP UDCUP PO PRN (15:15)
[2025-03-06 15:51] VITALS: BP 131/81; PULSE 68; RESP 18; TEMP 97.7; O2SAT 95
[2025-03-06 19:46] VITALS: BP 116/73; PULSE 69; RESP 18; TEMP 98.4; O2SAT 93
[2025-03-07 04:20] VITALS: BP 151/72; PULSE 81; RESP 20; TEMP 97.8; O2SAT 94
[2025-03-07 07:31] LABS: PLATELET COUNT (AUTO) 379 K/uL (150-450); RED BLOOD CELL COUNT(AUTO) 2.54 MIL/uL (4.00-5.20); RED CELL DISTRIBUTION WIDTH 16.0 % (11.5-14.5); WHITE BLOOD COUNT (AUTO) 13.9 K/uL (4.5-11.0)
[2025-03-07 07:38] LABS: CALCIUM, TOTAL 8.2 mg/dL (8.8-10.5); CREATININE 0.65 mg/dL (0.60-1.30); GLOMERULAR FILTR. RATE CALC > 60 mL/min (>60); GLUCOSE,RANDOM 84 mg/dL (70-110); SODIUM SERUM 143 mmol/L (136-145); UREA NITROGEN, BLOOD 7 mg/dL (7-18)
[2025-03-07 08:20] VITALS: BP 140/71; PULSE 83; RESP 20; TEMP 97.8; O2SAT 94
[2025-03-07] MEDS: *CLINICAL-LEVOFLOXACIN IVPB DOSING CLINICAL ONE (09:13)
[2025-03-07] MEDS ORDERED: SODIUM CHLORIDE 0.9% 0 ML IV ONE (11:28)
[2025-03-07] MEDS: LEVOFLOXACIN 750 MG/D5% WATER 150 ML IV SCH (14:35)
[2025-03-07 16:30] VITALS: BP 122/104; PULSE 72; RESP 20; TEMP 99; O2SAT 98
[2025-03-07 20:00] VITALS: BP 121/84; PULSE 70; RESP 20; TEMP 98.4; O2SAT 96
[2025-03-08 04:00] VITALS: BP 126/46; PULSE 69; RESP 18; TEMP 98.6; O2SAT 96
[2025-03-08 08:23] VITALS: BP 118/74; PULSE 64; RESP 19; TEMP 99; O2SAT 93
[2025-03-08 08:55] LABS: ASPARTATE AMINOTRANSFERASE 23 U/L (15-37); CALCIUM, TOTAL 7.9 mg/dL (8.8-10.5); CREATININE 0.84 mg/dL (0.60-1.30); GLOMERULAR FILTR. RATE CALC > 60 mL/min (>60); GLUCOSE,RANDOM 79 mg/dL (70-110); SODIUM SERUM 140 mmol/L (136-145); TOTAL PROTEIN, SERUM 5.4 g/dL (6.4-8.2); UREA NITROGEN, BLOOD 12 mg/dL (7-18)
[2025-03-08 12:22] LABS: PLATELET COUNT (AUTO) 350 K/uL (150-450); RED BLOOD CELL COUNT(AUTO) 2.31 MIL/uL (4.00-5.20); RED CELL DISTRIBUTION WIDTH 16.0 % (11.5-14.5); WHITE BLOOD COUNT (AUTO) 12.2 K/uL (4.5-11.0)
[2025-03-08] MEDS ORDERED: PANT-31 PO (13:49)
[2025-03-08] MEDS ORDERED: ATOR40TA28 PO (13:50)
[2025-03-08] MEDS ORDERED: [UNRECOGNIZED DRUG - CODE] IV (13:51)
[2025-03-08] MEDS ORDERED: DOCU-385 PO (13:51)
[2025-03-08] MEDS ORDERED: FOLI0.8T54 PO (13:52)
[2025-03-08] MEDS ORDERED: ALBU2.5V39 NEB (13:53)
[2025-03-08] MEDS ORDERED: GUAI100L96 PO (13:54)
[2025-03-08] MEDS ORDERED: BENZ-227 PO (13:54)
[2025-03-08] MEDS ORDERED: HYDR-4769 PO (13:55)
[2025-03-08] MEDS ORDERED: ZOLP-280 PO (13:58)
[2025-03-08] MEDS ORDERED: LIDO-16 TP (13:58)
[2025-03-08] MEDS: POTASSIUM CHLORIDE 20 MEQ ER TABLET PO ONE (14:55)
== END 2025-03-08 17:00 | DRG 871 ==
LOC: EMS 09:01 → EDH 10:05 → 5N 13:46 → 4E 02-28 01:00
PROVIDERS: ADMIT Internal Medicine; ATTEND Internal Medicine
PROC: 05HB33Z Insertion of Infusion Device into Right Basilic Vein, Percutaneous Approach (ICD-10-PCS; principal; 2025-03-03)
PROC: B54MZZA Ultrasonography of Right Upper Extremity Veins, Guidance (ICD-10-PCS; 2025-03-03)
PROC: 05HC33Z Insertion of Infusion Device into Left Basilic Vein, Percutaneous Approach (ICD-10-PCS; 2025-03-08)
PROC: B54NZZA Ultrasonography of Left Upper Extremity Veins, Guidance (ICD-10-PCS; 2025-03-08)
DX: A41.50 Gram-negative sepsis, unspecified (principal); G93.41 Metabolic encephalopathy; J96.01 Acute respiratory failure with hypoxia; N17.0 Acute kidney failure with tubular necrosis; L89.314 Pressure ulcer of right buttock, stage 4; T82.42XA Displacement of vascular dialysis catheter, initial encounter; N39.0 Urinary tract infection, site not specified; Z16.12 Extended spectrum beta lactamase (ESBL) resistance; Z16.13 Resistance to carbapenem; E66.9 Obesity, unspecified; B96.20 Unspecified Escherichia coli [E. coli] as the cause of diseases classified elsewhere; I48.91 Unspecified atrial fibrillation; E87.6 Hypokalemia; K56.41 Fecal impaction; I12.9 Hypertensive chronic kidney disease with stage 1 through stage 4 chronic kidney disease, or unspecified chronic kidney disease; E83.39 Other disorders of phosphorus metabolism; E83.42 Hypomagnesemia; D64.9 Anemia, unspecified; M48.56XG Collapsed vertebra, not elsewhere classified, lumbar region, subsequent encounter for fracture with delayed healing; N18.30 Chronic kidney disease, stage 3 unspecified; E78.00 Pure hypercholesterolemia, unspecified; S31.823A Puncture wound without foreign body of left buttock, initial encounter; S31.813A Puncture wound without foreign body of right buttock, initial encounter; X58.XXXA Exposure to other specified factors, initial encounter; Y93.89 Activity, other specified; Y92.89 Other specified places as the place of occurrence of the external cause; Y99.8 Other external cause status; Z74.01 Bed confinement status; Z79.82 Long term (current) use of aspirin; Z79.83 Long term (current) use of bisphosphonates; Z86.16 Personal history of COVID-19; Z87.440 Personal history of urinary (tract) infections; Z79.899 Other long term (current) drug therapy; Z68.34 Body mass index [BMI] 34.0-34.9, adult; L89.321 Pressure ulcer of left buttock, stage 1
CPT/HCPCS: 36569; 70450; 71045; 74177; 76705; 76937; 78806; 80048; 80053; 81001; 82271; 82550; 82728; 82962; 83540; 83550; 83605; 83615; 83690; 83735; 84100; 84145; 84484; 85025; 85610; 85730; 87040; 87070; 87076; 87077; 87081; 87086; 87186; 87205; 93005; 93306; 94640; 97110; 97163; 97530; 99285; A9500; A9547; G0378; J0131; J0696; J0878; J1630; J1956; J2060; J2185; J2270; J3475; J3480; J3490; J7030; J7040; J7050; J7060; J7120; 36415-L1; 36415-TC; J7613